=== PATIENT | male | born 1970 | race Hispanic/Latino ===

== ENCOUNTER → 2020-01-24 | Outpatient (CLI) | payer BC | END | disposition home or self-care (01) | LOC: RAH 09:37 | PROVIDERS: ATTEND Family Medicine | DX: R05 Cough (principal); M47.814 Spondylosis without myelopathy or radiculopathy, thoracic region; I70.0 Atherosclerosis of aorta | CPT/HCPCS: 71045 ==

== ENCOUNTER 2020-01-27 05:36 | Inpatient (IN) | payer BC ==
[~2020-01-27] VITALS: Ht 154.9 cm; Wt 79.7 kg
[2020-01-27 07:02] LABS: BASOPHILS % (AUTO) 0.1 % (0.0-5.0); EOSINOPHILS % (AUTO) 0.1 % (0.0-8.0); HEMATOCRIT 41.2 % (42-54); LYMPHOCYTES % (AUTO) 8.4 % (21.0-51.0); MEAN CORPUSCULAR HEMOGLOBIN 32.3 pg (27.0-33.0); MEAN CORPUSCULAR HGB CONC 33.7 g/dL (32.0-36.0); MEAN CORPUSCULAR VOLUME 95.8 fL (79-99); MONOCYTES % (AUTO) 9.6 % (3.0-13.0); NEUTROPHILS % (AUTO) 81.2 % (40.0-77.0); PLATELET COUNT (AUTO) 189 K/uL (130-400); RED CELL DISTRIBUTION WIDTH 13.2 % (11.0-15.5); WHITE BLOOD COUNT (AUTO) 14.4 K/uL (4.8-10.8)
[2020-01-27 07:17] LABS: INR 1.01 (0.85-1.15); PARTIAL THROMBOPLASTIN TIME 26.7 SEC (26.3-35.5); PROTHROMBIN TIME 10.9 SEC (9.6-11.6)
[2020-01-27 07:26] LABS: ALBUMIN 2.4 g/dL (3.5-5.0); BILIRUBIN,TOTAL 0.8 mg/dL (0.2-1.0); CREATININE 1.1 mg/dL (0.5-1.5); POTASSIUM 3.9 mmol/L (3.5-5.1); TOTAL PROTEIN, SERUM 7.3 g/dL (6.0-8.3)
[2020-01-27 07:27] LABS: ABG BASE EXCESS -1.2 mmol/L (-2.0-3.0); ABG HCO3 21.4 mmol/L (21.0-28.0); ABG OXYGEN SATURATION 90.9 % (95.0-99.0); ABG PCO2 31 mmHg (35-48)
[2020-01-27 07:33] LABS: B-TYPE NATRIURETIC PEPTIDE 985 pg/mL (0-100)
[2020-01-27] MEDS ORDERED: ASPIRIN 325 MG TABLET ONE (08:32)
[2020-01-27] MEDS ORDERED: CEFTRIAXONE SODIUM 2 GM VIAL ONE (08:50)
[2020-01-27] MEDS ORDERED: AZITHROMYCIN 500MG+NS 250ML 250 ML IV ONE (08:50)
[2020-01-27] MEDS ORDERED: METHYLPREDNISOLONE SOD SUCC 40MG/ML 1ML IVP SCH (09:00)
[2020-01-27] MEDS ORDERED: LACTULOSE 20 GM/30 ML UDCUP PO PRN (09:00)
[2020-01-27] MEDS ORDERED: ENOXAPARIN SODIUM 40 MG/0.4 ML SYRINGE SQ SCH (09:00)
[2020-01-27] MEDS ORDERED: NITROGLYCERIN 0.4 MG SL TAB SL PRN (09:00)
[2020-01-27] MEDS ORDERED: ERGOCALCIFEROL (VITAMIN D2) 50,000 UNIT CAPSULE PO SCH (09:00)
[2020-01-27] MEDS ORDERED: ONDANSETRON HCL 4 MG/2 ML VIAL IV PRN (09:00)
[2020-01-27] MEDS ORDERED: ACETAMINOPHEN 325 MG TAB PO PRN ×2 (09:00)
[2020-01-27 09:28] LABS: CHOLESTEROL 156 mg/dL (<200); HDL CHOLESTEROL 25 mg/dL (29-71); LDL DIRECT 120 mg/dL (0-99); TRIGLYCERIDES 78 mg/dL (30-200)
[2020-01-27 09:36] LABS: HEMOGLOBIN A1C 6.1 % (4.0-6.0)
[2020-01-27] MEDS ORDERED: IOHEXOL 350 MG/ML 100ML INFUS..BTL IV ONE (09:38)
[2020-01-27] MEDS ORDERED: FUROSEMIDE 10 MG/ML 2ML VIAL IV SCH ×2 (09:45→09:49)
[2020-01-27] MEDS ORDERED: METOPROLOL TARTRATE 1 MG/ML 5ML VIAL IV SCH (09:49)
[2020-01-27] MEDS ORDERED: TICAGRELOR 90 MG TABLET PO SCH (09:49)
[2020-01-27] MEDS ORDERED: MORPHINE SULFATE 5 MG/ML VIAL IV SCH (09:49)
[2020-01-27] MEDS ORDERED: FUROSEMIDE 10 MG/ML 2ML VIAL ONE ×2 (09:52→20:25)
[2020-01-27] MEDS ORDERED: MORPHINE SULFATE 4 MG/1ML SYG ONE (09:53)
[2020-01-27] MEDS ORDERED: METOPROLOL TARTRATE 1 MG/ML 5ML VIAL IV ONE (09:53)
[2020-01-27] MEDS ORDERED: ENOXAPARIN SODIUM 100 MG/1 ML SQ ONE ×2 (09:54→20:24)
[2020-01-27] MEDS ORDERED: ALBUTEROL INHALER 90MCG/INH IH PRN (10:00)
[2020-01-27 11:24] LABS: APPEARANCE,URINE Clear (CLEAR); BILIRUBIN,URINE Negative (NEGATIVE); COLOR,URINE Yellow (YELLOW); GLUCOSE, URINE (UA) Negative (NEGATIVE); KETONES,URINE Negative (NEGATIVE); LEUKOCYTE ESTERASE ,URINE Negative (NEGATIVE); NITRATE,URINE Negative (NEGATIVE); OCCULT BLOOD,URINE Negative (NEGATIVE); PROTEIN,URINE POS 1+ mg/dL (NEGATIVE)
[2020-01-27 11:58] LABS: BACTERIA,URINE Rare /HPF (None Seen); MUCUS,URINE Rare LPF (None Seen); RBC,URINE 0-1 /HPF (0-1); SQUAMOUS EPITHELIAL CELL,UR Rare /HPF (0-2); WBC,URINE 0-1 /HPF (0-1)
[2020-01-27] MEDS ORDERED: DEXAMETHASONE SOD PHOSPHATE 10MG/ML 1ML VIAL ONE (12:23)
[2020-01-27] MEDS ORDERED: METHYLPREDNISOLONE SOD SUCC 40MG/ML 1ML ONE (20:24)
[2020-01-27] MEDS ORDERED: DOXYCYCLINE HYCLATE 100 MG TABLET PO ONE (20:25)
[2020-01-27] MEDS ORDERED: ACETYLCYSTEINE 600 MG CAPSULE ONE (20:25)
[2020-01-27] MEDS ORDERED: ATORVASTATIN CALCIUM 40 MG TABLET ONE (20:26)
[2020-01-27] MEDS ORDERED: CEFTRIAXONE SODIUM 1 GM ONE (20:26)
[2020-01-27] MEDS ORDERED: METOPROLOL TARTRATE 25 MG TAB ONE (20:27)
[2020-01-27] MEDS: METOPROLOL TARTRATE 25 MG TAB PO SCH (21:00)
[2020-01-27] MEDS: ATORVASTATIN CALCIUM 40 MG TABLET PO SCH (21:00)
[2020-01-28 01:35] VITALS: BP 135/81
[2020-01-28 03:00] VITALS: BP 107/66
[2020-01-28] MEDS ORDERED: ALPRAZOLAM 0.25 MG TABLET PO ONE (04:45)
[2020-01-28] MEDS ORDERED: ALPRAZOLAM 0.25 MG TABLET ONE (04:45)
[2020-01-28] MEDS ORDERED: FUROSEMIDE 10 MG/ML 2ML VIAL IV ONE (05:00)
--- NOTE | 2020-01-28 05:00 | NUR ---
BIPAP PLACED BY RT. SETTINGS TITRATED BY RT ORDERED. PT LAVERN WELL
[2020-01-28] MEDS ORDERED: FUROSEMIDE 10 MG/ML 4ML VIAL ONE (05:01)
[2020-01-28] MEDS ORDERED: GUAIFENESIN-CODEINE 5 ML SYRUP ONE (05:22)
[2020-01-28 05:26] LABS: BASOPHILS % (AUTO) 0.1 % (0.0-5.0); HEMATOCRIT 46.2 % (42-54); LYMPHOCYTES % (AUTO) 9.7 % (21.0-51.0); MEAN CORPUSCULAR HGB CONC 33.1 g/dL (32.0-36.0); MEAN CORPUSCULAR VOLUME 96.7 fL (79-99); MONOCYTES % (AUTO) 4.3 % (3.0-13.0); NEUTROPHILS % (AUTO) 85.1 % (40.0-77.0); PLATELET COUNT (AUTO) 241 K/uL (130-400); RED BLOOD CELL COUNT(AUTO) 4.78 MIL/uL (4.50-6.20); RED CELL DISTRIBUTION WIDTH 13.4 % (11.0-15.5); WHITE BLOOD COUNT (AUTO) 12.5 K/uL (4.8-10.8)
[2020-01-28] MEDS ORDERED: NITROGLYCERIN 1GM/1 INCH PACKET TD ONE (05:30)
[2020-01-28] MEDS ORDERED: GUAIFENESIN-CODEINE 5 ML SYRUP PO PRN (05:30)
[2020-01-28 05:50] LABS: CRP QUANTITATIVE 72.8 mg/L (0.00-9.0); POTASSIUM 4.6 mmol/L (3.5-5.1)
--- NOTE | 2020-01-28 07:26 | NUR ---
preston KRAUSE. PT CURRENTLY ON NONREBREATHER @ 15 L. SpO2 @ 93%, RR 32 Addendum: 01/28/20 at 0728 by VENITA GROSS RN RN LATE ENTRY. EVENT OCCURRED AT 2323
[2020-01-28] MEDS ORDERED: PHARMACY COMMUNICATION MISC SCH (08:15)
[2020-01-28] MEDS: ZINC SULFATE 220 CAPSULE PO SCH (08:23)
[2020-01-28] MEDS: METOPROLOL TARTRATE 25 MG TAB PO SCH ×2 (08:28→21:00)
[2020-01-28] MEDS: CEFTRIAXONE SODIUM 1 GM IVP SCH ×2 (08:28→20:09)
[2020-01-28] MEDS: DOXYCYCLINE HYCLATE 100 MG TABLET PO SCH ×2 (08:28→20:11)
[2020-01-28] MEDS: ACETYLCYSTEINE 600 MG CAPSULE PO SCH ×2 (08:28→20:12)
[2020-01-28] MEDS: ASCORBIC ACID 500 MG TAB PO SCH (08:28)
[2020-01-28] MEDS: TICAGRELOR 90 MG TABLET PO SCH ×2 (08:28→20:12)
[2020-01-28] MEDS: ASPIRIN 81MG TAB.CHEW PO SCH (08:28)
[2020-01-28] MEDS: ENOXAPARIN SODIUM 100 MG/1 ML SQ SCH ×2 (08:33→20:11)
[2020-01-28] MEDS: METHYLPREDNISOLONE SOD SUCC 40MG/ML 1ML IVP SCH ×6 (08:35→20:13)
[2020-01-28] MEDS ORDERED: REMDESIVIR (EUA) 520 200 MG in SODIUM CHLORIDE 0.9% 250 ML IV SCH (08:45)
[2020-01-28] MEDS ORDERED: COMPOUND IV REFRIGERATED 1 EACH IVSOLN MISC PRN (08:45)
[2020-01-28] MEDS ORDERED: METHYLPREDNISOLONE SOD SUCC 40MG/ML 1ML IVP SCH (09:00)
[2020-01-28 12:00] VITALS: BP 108/66
[2020-01-28] MEDS: LORAZEPAM 2 MG/ML 1 ML VIAL IVP PRN ×2 (14:14→15:32)
--- NOTE | 2020-01-28 14:17 | NUR ---
CHART CHECK COMPLETED. Pt HAS A 49 Y.O. MALE ADMITTED SECONDARY TO COVID 19 INFECTION, ACUTE RESPIRATORY FAILURE, R LOVER EXTREMITY DVT, NSTEMI, ACUTE CHF. PAST MEDICAL HISTORY SIGNIFICANT FOR HYPERTENSION. Pt CURRENTLY ON REGULAR TEXTURE,THIN LIQUID DIET (HEART HEALTHY). PLEASE REQUEST FORMAL SKILLED SPEECH/SWALLOW EVALUATION IF Pt PRESENTS WITH +S/S OF ASPIRATION SUCH COUGH RESPONSE, THROAT CLEAR, OR WET VOCAL QUALITY DURING P.O. Addendum: 01/28/20 at 1424 by JOSEP LOZANO [facility] Amended: Links added.
[2020-01-28] MEDS: FUROSEMIDE 10 MG/ML 2ML VIAL IV SCH ×2 (15:30→20:10)
[2020-01-28 16:00] VITALS: BP 107/73
--- NOTE | 2020-01-28 18:03 | NUR ---
RAPID COVID-19 COLLECTED AND SENT TO LAB.
--- NOTE | 2020-01-28 18:11 | NUR ---
PATIENT IS LAYING ON BED IN A HIGH TRUJILLO'S POSITION, ASLEEP, AND ON A BIPAP 18/10, 100%. HE APPEARS COMFORTABLE ALTHOUGH STILL TACHYPNEIC WITH RR IN THE 20'S. PATIENT IS PENDING ICU TRANSFER. CALL LIGHT WITHIN REACH.
[2020-01-28 19:00] VITALS: BP 100/69
--- NOTE | 2020-01-28 19:49 | NUR ---
SPOKE TO SON ON PHONE ABOUT PATIENT - STATES EMPLOYED, ACTIVE, INDEPENDENT, NO DEM , DOES NOT FOLLOW VERY REGULARLY WITH , SEES DR. PAZ OCCAISIONALLY , ADDED SISTERT GEOVANNA TO FACE SHEET AND FAXED. [facility]. EDEN WAITING FOR ICU BED. VERY SICK CM TO FOLLOW Addendum: 01/28/20 at 1958 by ROXANNE MAYORGA RN CM Amended: Links added.
[2020-01-28] MEDS: ATORVASTATIN CALCIUM 40 MG TABLET PO SCH (20:12)
[2020-01-28 23:53] VITALS: BP 96/54
[2020-01-29] VITALS (8 sets, daily range): BP systolic 84–128; BP diastolic 54–77
[2020-01-29 05:33] LABS: BASOPHILS % (AUTO) 0.1 % (0.0-5.0); HEMATOCRIT 39.9 % (42-54); MEAN CORPUSCULAR HGB CONC 33.3 g/dL (32.0-36.0); MEAN CORPUSCULAR VOLUME 95.9 fL (79-99); MONOCYTES % (AUTO) 5.1 % (3.0-13.0); NEUTROPHILS % (AUTO) 89.2 % (40.0-77.0); PLATELET COUNT (AUTO) 210 K/uL (130-400); RED BLOOD CELL COUNT(AUTO) 4.16 MIL/uL (4.50-6.20); RED CELL DISTRIBUTION WIDTH 13.2 % (11.0-15.5); WHITE BLOOD COUNT (AUTO) 12.1 K/uL (4.8-10.8)
[2020-01-29] MEDS: METHYLPREDNISOLONE SOD SUCC 40MG/ML 1ML IVP SCH ×2 (05:44→08:34)
[2020-01-29] MEDS: FUROSEMIDE 10 MG/ML 2ML VIAL IV SCH ×3 (05:44→21:00)
[2020-01-29 05:51] LABS: ALBUMIN 2.2 g/dL (3.5-5.0); BILIRUBIN,TOTAL 0.5 mg/dL (0.2-1.0); CREATININE 0.9 mg/dL (0.5-1.5); CRP QUANTITATIVE 36.7 mg/L (0.00-9.0); POTASSIUM 3.9 mmol/L (3.5-5.1); TOTAL PROTEIN, SERUM 6.6 g/dL (6.0-8.3)
[2020-01-29] MEDS: CEFTRIAXONE SODIUM 1 GM IVP SCH ×2 (08:32→20:59)
[2020-01-29] MEDS: ASCORBIC ACID 500 MG TAB PO SCH (08:32)
[2020-01-29] MEDS: ENOXAPARIN SODIUM 100 MG/1 ML SQ SCH ×2 (08:33→20:59)
[2020-01-29] MEDS: TICAGRELOR 90 MG TABLET PO SCH ×2 (08:33→20:58)
[2020-01-29] MEDS: ACETYLCYSTEINE 600 MG CAPSULE PO SCH ×2 (08:33→20:58)
[2020-01-29] MEDS: ASPIRIN 81MG TAB.CHEW PO SCH (08:33)
[2020-01-29] MEDS: ZINC SULFATE 220 CAPSULE PO SCH (08:33)
[2020-01-29] MEDS: DOXYCYCLINE HYCLATE 100 MG TABLET PO SCH ×2 (08:34→20:59)
[2020-01-29] MEDS: METOPROLOL TARTRATE 25 MG TAB PO SCH ×2 (08:34→20:58)
--- NOTE | 2020-01-29 08:44 | NUR ---
Report endorsed to KAMRON Yun
[2020-01-29] MEDS: REMDESIVIR (EUA) 520 100 MG in SODIUM CHLORIDE 0.9% 250 ML IV SCH (10:19)
--- NOTE | 2020-01-29 18:53 | NUR ---
TRANSFER RECEIVED FROM ICU. PT IS AAOx4. LYING IN BED IN HIGH TRUJILLO'S POSITION. DENIED ANY PAIN. PT STATED, "I'M SCARED. I WENT FROM BEING OKAY TO BEING HERE." PT REASSURED. RESPIRATIONS EVEN AND UNLABORED AT THIS TIME ON 100% NRB. CHRISTY CATHETER IN PLACE, PATENT, SECURED TO LEG. EDEMA TO BLE, ANKLES, FEET. WILL CONTINUE TO MONITOR. SAFETY MEASURES IN PLACE.
[2020-01-29] MEDS: ATORVASTATIN CALCIUM 40 MG TABLET PO SCH (20:59)
[2020-01-30 03:00] VITALS: BP 100/60
[2020-01-30 04:46] LABS: ALBUMIN 2.3 g/dL (3.5-5.0); BILIRUBIN,TOTAL 0.6 mg/dL (0.2-1.0); CREATININE 0.3 mg/dL (0.5-1.5); CRP QUANTITATIVE 24.3 mg/L (0.00-9.0); POTASSIUM 3.6 mmol/L (3.5-5.1); TOTAL PROTEIN, SERUM 6.8 g/dL (6.0-8.3)
[2020-01-30 04:47] LABS: BASOPHILS % (AUTO) 0.1 % (0.0-5.0); HEMATOCRIT 40.3 % (42-54); LYMPHOCYTES % (AUTO) 5.8 % (21.0-51.0); MEAN CORPUSCULAR HEMOGLOBIN 31.8 pg (27.0-33.0); MEAN CORPUSCULAR VOLUME 96.4 fL (79-99); MONOCYTES % (AUTO) 6.4 % (3.0-13.0); NEUTROPHILS % (AUTO) 87.1 % (40.0-77.0); PLATELET COUNT (AUTO) 228 K/uL (130-400); RED BLOOD CELL COUNT(AUTO) 4.18 MIL/uL (4.50-6.20); RED CELL DISTRIBUTION WIDTH 13.6 % (11.0-15.5)
[2020-01-30] MEDS: FUROSEMIDE 10 MG/ML 2ML VIAL IV SCH ×2 (05:46→10:45)
[2020-01-30 08:00] VITALS: BP 95/64
[2020-01-30] MEDS: CEFTRIAXONE SODIUM 1 GM IVP SCH (09:36)
[2020-01-30] MEDS: ZINC SULFATE 220 CAPSULE PO SCH (09:36)
[2020-01-30] MEDS: DEXAMETHASONE SOD PHOSPHATE 4 MG/ML 1ML VIAL IVP SCH (09:36)
[2020-01-30] MEDS: ASCORBIC ACID 500 MG TAB PO SCH (09:36)
[2020-01-30] MEDS: METOPROLOL TARTRATE 25 MG TAB PO SCH ×2 (09:37→23:18)
[2020-01-30] MEDS: TICAGRELOR 90 MG TABLET PO SCH ×2 (09:37→23:17)
[2020-01-30] MEDS: ACETYLCYSTEINE 600 MG CAPSULE PO SCH ×2 (09:37→23:19)
[2020-01-30] MEDS: DOXYCYCLINE HYCLATE 100 MG TABLET PO SCH (09:37)
[2020-01-30] MEDS: ENOXAPARIN SODIUM 100 MG/1 ML SQ SCH ×2 (09:38→23:20)
[2020-01-30] MEDS: ASPIRIN 81MG TAB.CHEW PO SCH (09:38)
[2020-01-30] MEDS: REMDESIVIR (EUA) 520 100 MG in SODIUM CHLORIDE 0.9% 250 ML IV SCH (09:41)
[2020-01-30 11:30] VITALS: BP 104/62
[2020-01-30] MEDS: MAG HYDROX/AL HYDROX/SIMETH ES 30 ML SUSP UDCUP PO PRN (12:08)
[2020-01-30 15:30] VITALS: BP 133/60
[2020-01-30 19:21] VITALS: BP 98/62
[2020-01-30] MEDS: ATORVASTATIN CALCIUM 40 MG TABLET PO SCH (23:17)
[2020-01-30 23:39] VITALS: BP 117/62
[2020-01-31] MEDS: LORAZEPAM 2 MG/ML 1 ML VIAL IVP PRN ×2 (03:08→13:40)
[2020-01-31 03:16] VITALS: BP 97/62
[2020-01-31 04:28] LABS: BASOPHILS % (AUTO) 0.1 % (0.0-5.0); HEMATOCRIT 39.2 % (42-54); LYMPHOCYTES % (AUTO) 3.9 % (21.0-51.0); MEAN CORPUSCULAR HGB CONC 33.2 g/dL (32.0-36.0); MEAN CORPUSCULAR VOLUME 96.6 fL (79-99); MONOCYTES % (AUTO) 5.7 % (3.0-13.0); NEUTROPHILS % (AUTO) 89.8 % (40.0-77.0); PLATELET COUNT (AUTO) 187 K/uL (130-400); RED BLOOD CELL COUNT(AUTO) 4.06 MIL/uL (4.50-6.20); RED CELL DISTRIBUTION WIDTH 13.4 % (11.0-15.5); WHITE BLOOD COUNT (AUTO) 13.6 K/uL (4.8-10.8)
[2020-01-31 04:55] LABS: ALBUMIN 2.2 g/dL (3.5-5.0); BILIRUBIN,TOTAL 0.9 mg/dL (0.2-1.0); CREATININE 0.8 mg/dL (0.5-1.5); POTASSIUM 3.8 mmol/L (3.5-5.1); TOTAL PROTEIN, SERUM 6.4 g/dL (6.0-8.3)
[2020-01-31 08:00] VITALS: BP 105/62
[2020-01-31] MEDS: ASCORBIC ACID 500 MG TAB PO SCH (09:00)
[2020-01-31] MEDS: FUROSEMIDE 10 MG/ML 2ML VIAL IV SCH ×2 (09:53→21:15)
[2020-01-31] MEDS: DEXAMETHASONE SOD PHOSPHATE 4 MG/ML 1ML VIAL IVP SCH (09:53)
[2020-01-31] MEDS: REMDESIVIR (EUA) 520 100 MG in SODIUM CHLORIDE 0.9% 250 ML IV SCH (09:53)
[2020-01-31] MEDS: ACETYLCYSTEINE 600 MG CAPSULE PO SCH ×2 (09:54→21:14)
[2020-01-31] MEDS: ASPIRIN 81MG TAB.CHEW PO SCH (09:54)
[2020-01-31] MEDS: METOPROLOL TARTRATE 25 MG TAB PO SCH ×2 (09:54→21:14)
[2020-01-31] MEDS: ZINC SULFATE 220 CAPSULE PO SCH (09:54)
[2020-01-31] MEDS: TICAGRELOR 90 MG TABLET PO SCH ×2 (09:54→21:15)
[2020-01-31] MEDS: ENOXAPARIN SODIUM 100 MG/1 ML SQ SCH ×2 (09:54→21:14)
[2020-01-31 11:30] VITALS: BP 101/66
--- NOTE | 2020-01-31 13:40 | NUR ---
PATIENT CALLED OUT STATING HE WAS REALLY ANXIOUS AND SCARED THAT HE DID NOT WANT TO GET ANY WORSE. EXPLAINED TO PATIENT THAT HE HAS BEEN SATTING AT 100% ON THE NON REBREATHER. PATIENT STATED HE UNDERSTOOD JUST WAS REALLY NERVOUS. THIS NURSE DID DO HIS VITAL SIGNS AND HE WAS SATTING AT 100% ON THE NON REBREATHER. THIS NURSE DID EDUCATE ON TAKING DEEP BREATHS IN WITH HIS NOSE AND OUT THROUGH HIS MOUTH. PATIENT STATED HE UNDERSTOOD. PATIENT DOES HAVE ATIVAN 1MG ORDERED FOR ANXIETY. 1340 PATIENT GIVEN 1MG FOR ANXIETY.
--- NOTE | 2020-01-31 14:45 | NUR ---
1420 PATIENT HAD TAKEN OFF HIS NONREBREATHER MASK AND WAS DIAPHORETIC AND LETHARGIC. RAPID RESPONSE WAS CALLED. PATIENT PUT ON BIPAP. PATIENT VITALS ARE STABLE AND SATTING AT 99% PATIENT IS AROUSABLE AND ABLE TO SPEAK. PATIENT STATES HE FEELS BETTER.
--- NOTE | 2020-01-31 14:48 | NUR ---
EDUCATED TO PATIENT NOT TO TAKE HIS MASK OR BIPAP OFF AND TO HIT THE CALL LIGHT IF HE NEEDS ANYTHING. PATIENT VERBALIZED UNDERSTANDING. WILL CONTINUE TO CLOSELY MONITOR.
[2020-01-31 15:30] VITALS: BP 106/58
--- NOTE | 2020-01-31 15:52 | NUR ---
PATIENT IS CONTINUOUSLY TAKING BIPAP OFF. ORDERS RECEIVED FROM DR. GOODWIN FOR A ONE TO ONE SITTER AT THIS TIME.
--- NOTE | 2020-01-31 18:39 | NUR ---
DR. Malou CHIN IN ROOM ASSESSING/SPEAKING WITH PT. RE:PLAN OF CARE.
--- NOTE | 2020-01-31 18:46 | NUR ---
DR. Malou CHIN SPEAKING WITH PT.'S DAUGHTER, GEOVANNA YANEZ, VIA TELEPHONE; UPDATING ON PT.'S STATUS AND PLAN OF CARE. QUESTIONS ANSWERED BY DR. Malou CHIN.
[2020-01-31 19:38] VITALS: BP 101/79
[2020-01-31] MEDS: ATORVASTATIN CALCIUM 40 MG TABLET PO SCH (21:16)
[2020-01-31 23:39] VITALS: BP 114/84
[2020-02-01 04:00] VITALS: BP 101/79
--- NOTE | 2020-02-01 04:19 | NUR ---
END OF SHIFT NOTE. PATIENT HAS BEEN SATTING AT 98% WITH BIPAP ON. PLAN TO PLACE ON NON REBREATHER IN THE MORNING. ONE TO ONE SITTER HAS BEEN CLOSELY MONITORING. NO SIGNS OR SYMPTOMS OF RESPIRATORY DISTRESS. PATIENT DID NOT TRY TO PULL OFF BIPAP DURING THE NIGHT. PATIENT DENIES ANY PAIN AT THIS TIME.
--- NOTE | 2020-02-01 05:36 | NUR ---
BACK TO NON REBREATHER BATHED PATIENT AND PLACED PATIENT FROM BIPAP BACK TO NON REBREATHER. PATIENT IS SATTING BETWEEN 92%-96%. PATIENT STATES HE FEELS MUCH BETTER. EDUCATED TO PATIENT NOT TO TAKE OFF MASK. PATIENT VERBALIZED UNDERSTANDING. PATIENT DOES HAVE A ONE TO ONE SITTER.
[2020-02-01 08:00] VITALS: BP 100/67
[2020-02-01] MEDS: ZINC SULFATE 220 CAPSULE PO SCH (10:02)
[2020-02-01] MEDS: METOPROLOL TARTRATE 25 MG TAB PO SCH ×2 (10:02→22:10)
[2020-02-01] MEDS: ASCORBIC ACID 500 MG TAB PO SCH (10:02)
[2020-02-01] MEDS: TICAGRELOR 90 MG TABLET PO SCH ×2 (10:03→22:10)
[2020-02-01] MEDS: ACETYLCYSTEINE 600 MG CAPSULE PO SCH ×2 (10:03→22:11)
[2020-02-01] MEDS: SPIRONOLACTONE 25 MG TAB PO SCH (10:03)
[2020-02-01] MEDS: ASPIRIN 81MG TAB.CHEW PO SCH (10:03)
[2020-02-01] MEDS: DEXAMETHASONE SOD PHOSPHATE 4 MG/ML 1ML VIAL IVP SCH (10:04)
[2020-02-01] MEDS: FUROSEMIDE 10 MG/ML 2ML VIAL IV SCH ×2 (10:04→22:11)
[2020-02-01] MEDS: ENOXAPARIN SODIUM 100 MG/1 ML SQ SCH ×2 (10:05→22:10)
[2020-02-01] MEDS: REMDESIVIR (EUA) 520 100 MG in SODIUM CHLORIDE 0.9% 250 ML IV SCH (10:05)
--- NOTE | 2020-02-01 10:10 | NUR ---
Nicolle EM, VEHICLE OPERATOR TECHNICIAN, IN ROOM SPEAKING WITH PT. RE:PLAN OF CARE. Nicolle EM UPDATED BY THIS NURSE ON PT.'S CURRENT MEDICATION REGIMEN AND OXYGEN REQUIREMENTS; VERBALIZED UNDERSTANDING.
[2020-02-01] MEDS ORDERED: SODIUM CHLORIDE 0.9% 50 ML IV ONE (11:10)
[2020-02-01 11:30] VITALS: BP 113/62
[2020-02-01] MEDS ORDERED: DOXYCYCLINE 100MG+NS 250ML 250 ML IV SCH (12:30)
[2020-02-01] MEDS: CEFEPIME HCL 2 GM VIAL IVP SCH ×2 (13:26→22:09)
[2020-02-01 15:30] VITALS: BP 113/62
[2020-02-01] MEDS ORDERED: IOHEXOL-350 75 ML VIAL IV ONE (15:40)
[2020-02-01 19:46] VITALS: BP 105/66
[2020-02-01] MEDS: ATORVASTATIN CALCIUM 40 MG TABLET PO SCH (22:10)
[2020-02-01 23:42] VITALS: BP 113/70
[2020-02-02 03:20] VITALS: BP 105/60
[2020-02-02 05:16] LABS: BASOPHILS % (AUTO) 0.1 % (0.0-5.0); EOSINOPHILS % (AUTO) 0.1 % (0.0-8.0); HEMATOCRIT 44.6 % (42-54); LYMPHOCYTES % (AUTO) 3.3 % (21.0-51.0); MEAN CORPUSCULAR HEMOGLOBIN 31.8 pg (27.0-33.0); MEAN CORPUSCULAR HGB CONC 33.2 g/dL (32.0-36.0); MEAN CORPUSCULAR VOLUME 95.7 fL (79-99); MONOCYTES % (AUTO) 4.2 % (3.0-13.0); NEUTROPHILS % (AUTO) 91.8 % (40.0-77.0); PLATELET COUNT (AUTO) 198 K/uL (130-400); RED BLOOD CELL COUNT(AUTO) 4.66 MIL/uL (4.50-6.20); RED CELL DISTRIBUTION WIDTH 13.6 % (11.0-15.5); WHITE BLOOD COUNT (AUTO) 19.2 K/uL (4.8-10.8)
[2020-02-02 05:37] LABS: ALBUMIN 2.3 g/dL (3.5-5.0); BILIRUBIN,TOTAL 1.3 mg/dL (0.2-1.0); CREATININE 0.8 mg/dL (0.5-1.5); POTASSIUM 3.5 mmol/L (3.5-5.1)
[2020-02-02] MEDS: CEFEPIME HCL 2 GM VIAL IVP SCH ×3 (05:42→22:58)
[2020-02-02 08:00] VITALS: BP 106/66
[2020-02-02] MEDS: TICAGRELOR 90 MG TABLET PO SCH ×2 (08:24→22:59)
[2020-02-02] MEDS: SPIRONOLACTONE 25 MG TAB PO SCH (08:25)
[2020-02-02] MEDS: ASCORBIC ACID 500 MG TAB PO SCH (08:25)
[2020-02-02] MEDS: METOPROLOL TARTRATE 25 MG TAB PO SCH ×2 (08:25→21:00)
[2020-02-02] MEDS: ZINC SULFATE 220 CAPSULE PO SCH (08:25)
[2020-02-02] MEDS: ACETYLCYSTEINE 600 MG CAPSULE PO SCH ×2 (08:26→23:00)
[2020-02-02] MEDS: ASPIRIN 81MG TAB.CHEW PO SCH (08:26)
[2020-02-02] MEDS: FUROSEMIDE 10 MG/ML 2ML VIAL IV SCH ×2 (08:28→22:58)
[2020-02-02] MEDS: DEXAMETHASONE SOD PHOSPHATE 4 MG/ML 1ML VIAL IVP SCH (08:28)
[2020-02-02] MEDS: ENOXAPARIN SODIUM 100 MG/1 ML SQ SCH ×2 (08:29→23:01)
[2020-02-02] MEDS: DOXYCYCLINE 100MG+NS 250ML 250 ML IV SCH ×3 (09:00→22:59)
[2020-02-02 11:30] VITALS: BP 94/67
[2020-02-02 15:30] VITALS: BP 104/76
[2020-02-02] MEDS ORDERED: LIDOCAINE HCL-MPF 1% 2ML VIAL IV PRN (16:30)
[2020-02-02] MEDS ORDERED: POTASSIUM CHLORIDE 10% ELIXIR 20 MEQ/15 ML UDCUP PO PRN (16:30)
[2020-02-02] MEDS ORDERED: POTASSIUM CHLORIDE 20MEQ/100ML 100 ML IV PRN (16:30)
[2020-02-02 19:35] VITALS: BP 102/61
[2020-02-02] MEDS: LISINOPRIL 5 MG TABLET PO SCH (21:00)
[2020-02-02] MEDS: POTASSIUM CHLORIDE 20 MEQ ERTAB PO PRN (22:00)
[2020-02-02] MEDS: ATORVASTATIN CALCIUM 40 MG TABLET PO SCH (22:59)
[2020-02-02] MEDS ORDERED: MAG HYDROX/AL HYDROX/SIMETH ES 30 ML SUSP UDCUP PO PRN (23:00)
[2020-02-02] MEDS ORDERED: LIDOCAINE HCL 2% VISCOUS 30 ML, MAG HYDROX/AL HYDROX/SIMETH 30 ML, BELLADONNA-PHENOBARB... PO PRN ×3 (23:00)
[2020-02-02] MEDS: MAG HYDROX/AL HYDROX/SIMETH ES 30 ML SUSP UDCUP PO PRN (23:07)
[2020-02-02 23:09] VITALS: BP 103/66
[2020-02-03 03:43] VITALS: BP 103/72
[2020-02-03] MEDS: POTASSIUM CHLORIDE 20 MEQ ERTAB PO PRN (03:48)
[2020-02-03] MEDS: MAG HYDROX/AL HYDROX/SIMETH ES 30 ML SUSP UDCUP PO PRN ×2 (04:37→10:26)
[2020-02-03] MEDS: CEFEPIME HCL 2 GM VIAL IVP SCH ×3 (06:27→22:42)
[2020-02-03 08:00] VITALS: BP 106/72
--- NOTE | 2020-02-03 09:20 | NUR ---
DR. Malou CHIN IN ROOM ASSESSING/SPEAKING WITH PT. RE:PLAN OF CARE. QUESTIONS ANSWERED BY DR. CHIN.
[2020-02-03] MEDS: FUROSEMIDE 10 MG/ML 2ML VIAL IV SCH (09:50)
[2020-02-03] MEDS: FUROSEMIDE 20 MG TABLET PO SCH ×2 (10:00→22:43)
[2020-02-03] MEDS: ASCORBIC ACID 500 MG TAB PO SCH (10:05)
[2020-02-03] MEDS: TICAGRELOR 90 MG TABLET PO SCH ×2 (10:05→22:41)
[2020-02-03] MEDS: ACETYLCYSTEINE 600 MG CAPSULE PO SCH ×2 (10:05→22:40)
[2020-02-03] MEDS: DEXAMETHASONE SOD PHOSPHATE 4 MG/ML 1ML VIAL IVP SCH (10:05)
[2020-02-03] MEDS: DOXYCYCLINE 100MG+NS 250ML 250 ML IV SCH ×2 (10:05→22:43)
[2020-02-03] MEDS: METOPROLOL TARTRATE 25 MG TAB PO SCH ×2 (10:06→22:43)
[2020-02-03] MEDS: ZINC SULFATE 220 CAPSULE PO SCH (10:06)
[2020-02-03] MEDS: SPIRONOLACTONE 25 MG TAB PO SCH (10:06)
[2020-02-03] MEDS: ASPIRIN 81MG TAB.CHEW PO SCH (10:06)
[2020-02-03] MEDS: ENOXAPARIN SODIUM 100 MG/1 ML SQ SCH ×2 (10:07→22:43)
[2020-02-03 10:44] LABS: BASOPHILS % (AUTO) 0.1 % (0.0-5.0); EOSINOPHILS % (AUTO) 0.1 % (0.0-8.0); LYMPHOCYTES % (AUTO) 4.3 % (21.0-51.0); MEAN CORPUSCULAR HEMOGLOBIN 32.2 pg (27.0-33.0); MEAN CORPUSCULAR HGB CONC 33.5 g/dL (32.0-36.0); MONOCYTES % (AUTO) 4.7 % (3.0-13.0); NEUTROPHILS % (AUTO) 90.3 % (40.0-77.0); PLATELET COUNT (AUTO) 218 K/uL (130-400); RED CELL DISTRIBUTION WIDTH 13.8 % (11.0-15.5); WHITE BLOOD COUNT (AUTO) 19.1 K/uL (4.8-10.8)
[2020-02-03 10:53] LABS: CREATININE 0.8 mg/dL (0.5-1.5); POTASSIUM 4.6 mmol/L (3.5-5.1)
[2020-02-03 10:55] LABS: ALBUMIN 2.5 g/dL (3.5-5.0)
[2020-02-03 11:20] LABS: BILIRUBIN,TOTAL 1.2 mg/dL (0.2-1.0); TOTAL PROTEIN, SERUM 7.5 g/dL (6.0-8.3)
[2020-02-03 11:30] VITALS: BP 99/67
[2020-02-03] MEDS: PANTOPRAZOLE SODIUM 40 MG TABLET.DR PO SCH (12:30)
[2020-02-03] MEDS: POTASSIUM CHLORIDE 10 MEQ/TAB.SA PO SCH ×2 (12:31→22:41)
[2020-02-03 15:30] VITALS: BP 98/71
[2020-02-03] MEDS: WARFARIN SODIUM 2 MG TAB PO SCH (16:58)
[2020-02-03 19:00] VITALS: BP 96/62
[2020-02-03] MEDS ORDERED: POTASSIUM CHLORIDE 10 MEQ/TAB.SA PO SCH (21:00)
[2020-02-03] MEDS: ATORVASTATIN CALCIUM 40 MG TABLET PO SCH (22:42)
[2020-02-03] MEDS: LISINOPRIL 5 MG TABLET PO SCH (22:42)
[2020-02-03 23:00] VITALS: BP 99/62
[2020-02-04] MEDS: CEFEPIME HCL 2 GM VIAL IVP SCH ×3 (03:52→21:30)
[2020-02-04 04:00] VITALS: BP 100/68
[2020-02-04 05:42] LABS: INR 1.09 (0.85-1.15); PROTHROMBIN TIME 11.7 SEC (9.6-11.6)
[2020-02-04 07:00] VITALS: BP 98/69
--- NOTE | 2020-02-04 08:30 | NUR ---
AM ASSESSMENT PT AWAKE, ALERT, AND ORIENTED. DENIES CHEST PAIN OR DISCOMFORT, DENIES SOB OR LABORED RESPIRATIONS AT REST. O2 PER VENTI MASK, ASSISTANCE WITH ADLS, CALL LIGHT WITHIN REACH.
[2020-02-04] MEDS ORDERED: PANTOPRAZOLE SODIUM 40 MG TABLET.DR PO SCH (09:00)
[2020-02-04] MEDS: DEXAMETHASONE SOD PHOSPHATE 4 MG/ML 1ML VIAL IVP SCH (10:41)
[2020-02-04] MEDS: DOXYCYCLINE 100MG+NS 250ML 250 ML IV SCH ×2 (10:41→22:17)
[2020-02-04] MEDS: FUROSEMIDE 20 MG TABLET PO SCH ×2 (10:42→22:18)
[2020-02-04] MEDS: ASCORBIC ACID 500 MG TAB PO SCH (10:42)
[2020-02-04] MEDS: ENOXAPARIN SODIUM 100 MG/1 ML SQ SCH ×2 (10:42→22:19)
[2020-02-04] MEDS: ZINC SULFATE 220 CAPSULE PO SCH (10:43)
[2020-02-04] MEDS: TICAGRELOR 90 MG TABLET PO SCH ×2 (10:43→22:19)
[2020-02-04] MEDS: POTASSIUM CHLORIDE 10 MEQ/TAB.SA PO SCH ×2 (10:43→22:18)
[2020-02-04] MEDS: ASPIRIN 81MG TAB.CHEW PO SCH (10:43)
[2020-02-04] MEDS: SPIRONOLACTONE 25 MG TAB PO SCH (10:43)
[2020-02-04] MEDS: ACETYLCYSTEINE 600 MG CAPSULE PO SCH ×2 (10:44→22:17)
[2020-02-04] MEDS: METOPROLOL TARTRATE 25 MG TAB PO SCH ×2 (10:44→21:00)
[2020-02-04] MEDS: PANTOPRAZOLE SODIUM 40 MG TABLET.DR PO SCH (10:44)
[2020-02-04 11:00] VITALS: BP 99/70
[2020-02-04 16:00] VITALS: BP 95/64
[2020-02-04] MEDS: WARFARIN SODIUM 2 MG TAB PO SCH (17:23)
[2020-02-04 20:35] VITALS: BP 101/73
[2020-02-04] MEDS: ATORVASTATIN CALCIUM 40 MG TABLET PO SCH (22:17)
[2020-02-04] MEDS: LISINOPRIL 5 MG TABLET PO SCH (22:19)
[2020-02-05 00:05] VITALS: BP 95/61
[2020-02-05 05:06] VITALS: BP 100/69
[2020-02-05] MEDS: CEFEPIME HCL 2 GM VIAL IVP SCH ×3 (05:06→21:13)
[2020-02-05 06:44] LABS: BASOPHILS % (AUTO) 0.1 % (0.0-5.0); HEMATOCRIT 44.4 % (42-54); LYMPHOCYTES % (AUTO) 6.2 % (21.0-51.0); MEAN CORPUSCULAR HEMOGLOBIN 32.1 pg (27.0-33.0); MEAN CORPUSCULAR HGB CONC 34.2 g/dL (32.0-36.0); MEAN CORPUSCULAR VOLUME 93.9 fL (79-99); MONOCYTES % (AUTO) 5.8 % (3.0-13.0); NEUTROPHILS % (AUTO) 87.1 % (40.0-77.0); PLATELET COUNT (AUTO) 183 K/uL (130-400); RED BLOOD CELL COUNT(AUTO) 4.73 MIL/uL (4.50-6.20); RED CELL DISTRIBUTION WIDTH 13.1 % (11.0-15.5); WHITE BLOOD COUNT (AUTO) 14.4 K/uL (4.8-10.8)
[2020-02-05 07:07] LABS: CREATININE 0.8 mg/dL (0.5-1.5); CRP QUANTITATIVE 27.8 mg/L (0.00-9.0); POTASSIUM 5.1 mmol/L (3.5-5.1)
[2020-02-05 07:10] LABS: B-TYPE NATRIURETIC PEPTIDE 438 pg/mL (0-100)
[2020-02-05 07:26] LABS: INR 1.47 (0.85-1.15); PROTHROMBIN TIME 15.6 SEC (9.6-11.6)
[2020-02-05 08:48] VITALS: BP 96/58
[2020-02-05] MEDS: POTASSIUM CHLORIDE 10 MEQ/TAB.SA PO SCH ×2 (08:54→21:13)
[2020-02-05] MEDS: METOPROLOL TARTRATE 25 MG TAB PO SCH ×2 (08:55→21:00)
[2020-02-05] MEDS: ZINC SULFATE 220 CAPSULE PO SCH (09:03)
[2020-02-05] MEDS: ACETYLCYSTEINE 600 MG CAPSULE PO SCH ×2 (09:03→21:13)
[2020-02-05] MEDS: PANTOPRAZOLE SODIUM 40 MG TABLET.DR PO SCH (09:03)
[2020-02-05] MEDS: ASPIRIN 81MG TAB.CHEW PO SCH (09:04)
[2020-02-05] MEDS: TICAGRELOR 90 MG TABLET PO SCH ×2 (09:04→21:13)
[2020-02-05] MEDS: FUROSEMIDE 20 MG TABLET PO SCH ×2 (09:04→21:14)
[2020-02-05] MEDS: SPIRONOLACTONE 25 MG TAB PO SCH (09:04)
[2020-02-05] MEDS: ASCORBIC ACID 500 MG TAB PO SCH (09:05)
[2020-02-05] MEDS: DEXAMETHASONE SOD PHOSPHATE 4 MG/ML 1ML VIAL IVP SCH (09:05)
[2020-02-05] MEDS: DOXYCYCLINE 100MG+NS 250ML 250 ML IV SCH (09:07)
[2020-02-05] MEDS: ENOXAPARIN SODIUM 100 MG/1 ML SQ SCH ×2 (09:08→21:13)
[2020-02-05 11:31] VITALS: BP 83/61
[2020-02-05] MEDS: WARFARIN SODIUM 2 MG TAB PO SCH (15:25)
[2020-02-05 15:36] VITALS: BP 94/69
[2020-02-05] MEDS: LISINOPRIL 5 MG TABLET PO SCH (21:00)
[2020-02-05] MEDS: DOXYCYCLINE HYCLATE 100 MG TABLET PO SCH (21:13)
[2020-02-05] MEDS: ATORVASTATIN CALCIUM 40 MG TABLET PO SCH (21:13)
[2020-02-05 21:19] VITALS: BP 96/68
[2020-02-06 00:44] VITALS: BP 99/64
[2020-02-06] MEDS: CEFEPIME HCL 2 GM VIAL IVP SCH ×3 (04:43→21:57)
[2020-02-06 04:50] VITALS: BP 96/68
[2020-02-06 05:51] LABS: BASOPHILS % (AUTO) 0.2 % (0.0-5.0); LYMPHOCYTES % (AUTO) 6.5 % (21.0-51.0); MEAN CORPUSCULAR HEMOGLOBIN 32.5 pg (27.0-33.0); MEAN CORPUSCULAR VOLUME 92.8 fL (79-99); MONOCYTES % (AUTO) 6.6 % (3.0-13.0); NEUTROPHILS % (AUTO) 85.4 % (40.0-77.0); PLATELET COUNT (AUTO) 173 K/uL (130-400); RED BLOOD CELL COUNT(AUTO) 4.74 MIL/uL (4.50-6.20); WHITE BLOOD COUNT (AUTO) 17.4 K/uL (4.8-10.8)
[2020-02-06 07:06] LABS: ALBUMIN 2.6 g/dL (3.5-5.0); GLUCOSE,RANDOM 98 mg/dL (70-105); POTASSIUM 4.5 mmol/L (3.5-5.1); SODIUM SERUM 130 mmol/L (136-145); UREA NITROGEN, BLOOD 31 mg/dL (7-18)
[2020-02-06 07:07] LABS: ALANINE AMINOTRANSFERASE 76 U/L (12-78); ASPARTATE AMINOTRANSFERASE 31 U/L (10-37); CARBON DIOXIDE 22 mmol/L (21-32); CHLORIDE 99 mmol/L (101-111); CREATININE 0.8 mg/dL (0.5-1.5); GLOMERULAR FILTR. RATE CALC 108 mL/min (>60); LACTATE DEHYDROGENASE 351 U/L (81-234)
[2020-02-06 08:00] VITALS: BP 105/61
[2020-02-06 08:50] LABS: INR 1.86 (0.85-1.15); PROTHROMBIN TIME 19.6 SEC (9.6-11.6)
[2020-02-06] MEDS: POTASSIUM CHLORIDE 10 MEQ/TAB.SA PO SCH ×2 (09:16→21:57)
[2020-02-06] MEDS: METOPROLOL TARTRATE 25 MG TAB PO SCH ×2 (09:16→21:00)
[2020-02-06] MEDS: ACETYLCYSTEINE 600 MG CAPSULE PO SCH ×2 (09:16→21:56)
[2020-02-06] MEDS: DOXYCYCLINE HYCLATE 100 MG TABLET PO SCH ×2 (09:17→21:57)
[2020-02-06] MEDS: ASPIRIN 81MG TAB.CHEW PO SCH (09:17)
[2020-02-06] MEDS: ZINC SULFATE 220 CAPSULE PO SCH (09:17)
[2020-02-06] MEDS: TICAGRELOR 90 MG TABLET PO SCH ×2 (09:18→21:57)
[2020-02-06] MEDS: ASCORBIC ACID 500 MG TAB PO SCH (09:18)
[2020-02-06] MEDS: SPIRONOLACTONE 25 MG TAB PO SCH (09:18)
[2020-02-06] MEDS: PANTOPRAZOLE SODIUM 40 MG TABLET.DR PO SCH (09:18)
[2020-02-06] MEDS: FUROSEMIDE 20 MG TABLET PO SCH ×2 (09:19→21:57)
[2020-02-06] MEDS: DEXAMETHASONE SOD PHOSPHATE 4 MG/ML 1ML VIAL IVP SCH (09:19)
[2020-02-06] MEDS: ENOXAPARIN SODIUM 100 MG/1 ML SQ SCH ×2 (09:21→22:00)
[2020-02-06 12:00] VITALS: BP 95/64
[2020-02-06] MEDS: WARFARIN SODIUM 2 MG TAB PO SCH (15:41)
[2020-02-06 16:00] VITALS: BP 98/64
[2020-02-06 20:00] VITALS: BP 102/68
[2020-02-06] MEDS: LISINOPRIL 5 MG TABLET PO SCH (21:00)
[2020-02-06] MEDS: ATORVASTATIN CALCIUM 40 MG TABLET PO SCH (21:57)
[2020-02-07] VITALS (7 sets, daily range): BP systolic 90–132; BP diastolic 38–85
[2020-02-07] MEDS: CEFEPIME HCL 2 GM VIAL IVP SCH ×3 (04:27→19:51)
[2020-02-07 05:43] LABS: BASOPHILS % (AUTO) 0.2 % (0.0-5.0); EOSINOPHILS % (AUTO) 0.1 % (0.0-8.0); LYMPHOCYTES % (AUTO) 6.3 % (21.0-51.0); MEAN CORPUSCULAR HEMOGLOBIN 31.9 pg (27.0-33.0); MEAN CORPUSCULAR HGB CONC 34.8 g/dL (32.0-36.0); MEAN CORPUSCULAR VOLUME 91.8 fL (79-99); MONOCYTES % (AUTO) 5.3 % (3.0-13.0); NEUTROPHILS % (AUTO) 86.5 % (40.0-77.0); PLATELET COUNT (AUTO) 174 K/uL (130-400); RED BLOOD CELL COUNT(AUTO) 5.01 MIL/uL (4.50-6.20); RED CELL DISTRIBUTION WIDTH 13.1 % (11.0-15.5); WHITE BLOOD COUNT (AUTO) 19.3 K/uL (4.8-10.8)
[2020-02-07 06:08] LABS: ALBUMIN 2.6 g/dL (3.5-5.0); BILIRUBIN,TOTAL 0.8 mg/dL (0.2-1.0); CREATININE 0.8 mg/dL (0.5-1.5); CRP QUANTITATIVE 14.6 mg/L (0.00-9.0); POTASSIUM 4.3 mmol/L (3.5-5.1); TOTAL PROTEIN, SERUM 7.2 g/dL (6.0-8.3)
[2020-02-07 06:19] LABS: INR 1.95 (0.85-1.15); PARTIAL THROMBOPLASTIN TIME 41.1 SEC (26.3-35.5); PROTHROMBIN TIME 20.5 SEC (9.6-11.6)
[2020-02-07] MEDS: DEXAMETHASONE SOD PHOSPHATE 4 MG/ML 1ML VIAL IVP SCH (08:01)
[2020-02-07] MEDS: FUROSEMIDE 20 MG TABLET PO SCH ×2 (08:02→19:53)
[2020-02-07] MEDS: METOPROLOL TARTRATE 25 MG TAB PO SCH ×2 (08:02→21:18)
[2020-02-07] MEDS: PANTOPRAZOLE SODIUM 40 MG TABLET.DR PO SCH (08:02)
[2020-02-07] MEDS: DOXYCYCLINE HYCLATE 100 MG TABLET PO SCH ×2 (08:02→19:52)
[2020-02-07] MEDS: ZINC SULFATE 220 CAPSULE PO SCH (08:02)
[2020-02-07] MEDS: ASCORBIC ACID 500 MG TAB PO SCH (08:02)
[2020-02-07] MEDS: TICAGRELOR 90 MG TABLET PO SCH ×2 (08:03→19:52)
[2020-02-07] MEDS: SPIRONOLACTONE 25 MG TAB PO SCH (08:03)
[2020-02-07] MEDS: ASPIRIN 81MG TAB.CHEW PO SCH (08:03)
[2020-02-07] MEDS: ACETYLCYSTEINE 600 MG CAPSULE PO SCH ×2 (08:03→19:52)
[2020-02-07] MEDS: POTASSIUM CHLORIDE 10 MEQ/TAB.SA PO SCH ×2 (08:03→19:51)
[2020-02-07] MEDS: ENOXAPARIN SODIUM 100 MG/1 ML SQ SCH (08:04)
--- NOTE | 2020-02-07 10:10 | NUR ---
DR. Malou CHIN SPEAKING WITH PT. RE:STATUS AND PLAN OF CARE; QUESTIONS ANSWERED BY DR. Malou CHIN AND PT. VERBALIZED UNDERSTANDING.
--- NOTE | 2020-02-07 11:20 | NUR ---
DC PLAN CALLED PATIENT ROOM NO ANSWER. CALLED DAUGHTER NO ANSWER. CALLED SON SHANITA DID A CONFERENCE CALL WITH HIS SISTER. DISCUSSED [facility]. NOT CERTAIN DID NOT WANT TO GIVE LUIS ENRIQUE. GOT OKAY TO CALL BACK TOMORROW AT 900 TO SEE IF THEY CHANGED THEIR MIND. DAUGHTER CORRECT NUMBER IS [phone] SENT TO REGISTRATION. Addendum: 02/07/20 at 1121 by OSCAR CRUZ RN CM Amended: Links added.
[2020-02-07] MEDS: WARFARIN SODIUM 2 MG TAB PO SCH (16:13)
[2020-02-07] MEDS: ATORVASTATIN CALCIUM 40 MG TABLET PO SCH (19:54)
[2020-02-07] MEDS: LISINOPRIL 5 MG TABLET PO SCH (21:00)
[2020-02-08 03:26] VITALS: BP 97/72
[2020-02-08] MEDS: CEFEPIME HCL 2 GM VIAL IVP SCH (04:17)
[2020-02-08 05:00] LABS: BASOPHILS % (AUTO) 0.2 % (0.0-5.0); HEMATOCRIT 43.3 % (42-54); LYMPHOCYTES % (AUTO) 7.6 % (21.0-51.0); MEAN CORPUSCULAR HEMOGLOBIN 32.4 pg (27.0-33.0); MEAN CORPUSCULAR HGB CONC 35.3 g/dL (32.0-36.0); MEAN CORPUSCULAR VOLUME 91.7 fL (79-99); MONOCYTES % (AUTO) 6.1 % (3.0-13.0); PLATELET COUNT (AUTO) 152 K/uL (130-400); RED BLOOD CELL COUNT(AUTO) 4.72 MIL/uL (4.50-6.20); RED CELL DISTRIBUTION WIDTH 13.2 % (11.0-15.5); WHITE BLOOD COUNT (AUTO) 21.1 K/uL (4.8-10.8)
[2020-02-08 05:10] LABS: INR 1.92 (0.85-1.15); PROTHROMBIN TIME 20.2 SEC (9.6-11.6)
[2020-02-08 05:30] LABS: B-TYPE NATRIURETIC PEPTIDE 258 pg/mL (0-100)
[2020-02-08 05:51] LABS: ALBUMIN 2.4 g/dL (3.5-5.0); BILIRUBIN,TOTAL 0.8 mg/dL (0.2-1.0); CREATININE 0.8 mg/dL (0.5-1.5); CRP QUANTITATIVE 16.9 mg/L (0.00-9.0); POTASSIUM 4.2 mmol/L (3.5-5.1); TOTAL PROTEIN, SERUM 6.8 g/dL (6.0-8.3)
[2020-02-08 08:01] VITALS: BP 99/74
[2020-02-08] MEDS: DEXAMETHASONE SOD PHOSPHATE 4 MG/ML 1ML VIAL IVP SCH (09:15)
[2020-02-08] MEDS: SPIRONOLACTONE 25 MG TAB PO SCH (09:16)
[2020-02-08] MEDS: ASPIRIN 81MG TAB.CHEW PO SCH (09:16)
[2020-02-08] MEDS: DOXYCYCLINE HYCLATE 100 MG TABLET PO SCH (09:16)
[2020-02-08] MEDS: ZINC SULFATE 220 CAPSULE PO SCH (09:16)
[2020-02-08] MEDS: ACETYLCYSTEINE 600 MG CAPSULE PO SCH (09:16)
[2020-02-08] MEDS: TICAGRELOR 90 MG TABLET PO SCH (09:16)
[2020-02-08] MEDS: ASCORBIC ACID 500 MG TAB PO SCH (09:17)
[2020-02-08] MEDS: METOPROLOL TARTRATE 25 MG TAB PO SCH (09:17)
[2020-02-08] MEDS: PANTOPRAZOLE SODIUM 40 MG TABLET.DR PO SCH (09:17)
[2020-02-08] MEDS: FUROSEMIDE 20 MG TABLET PO SCH (09:17)
[2020-02-08] MEDS: POTASSIUM CHLORIDE 10 MEQ/TAB.SA PO SCH (09:17)
--- NOTE | 2020-02-08 09:55 | NUR ---
INFORMED PT. AND RATIONALE EXPLAINED FOR PRONE POSITIONING, VERBALIZED UNDERSTANDING. OFFERED ASSISTANCE TO PT. FOR PRONE POSITIONING; EXERTIONAL SOB NOTED AND WEAKNESS. PT. ABLE TO TURN TO SEMI-PRONE POSITION. CALL LIGHT WITHIN REACH, VERBALIZED ABILITY TO USE.
--- NOTE | 2020-02-08 10:19 | NUR ---
DR. Malou CHIN IN ROOM SPEAKING WITH PT. PT. HAD ALREADY RETURNED TO A SUPINE POSITION ON HIS OWN; BED IN REVERSE [place]LENBURG POSITION. ADVISED PT. ONCE AGAIN RE:PRONE POSITIONING WHILE DR. CHIN PRESENT AND THIS NURSE MADE DR. CHIN AWARE PT. WAS ONLY SEMI-PRONE FOR APPROXIMATELY [address] Malou CHIN SPOKE WITH PT. RE:IMPORTANCE OF PRONE POSITIONING; PT. AGREES TO INSTRUCTIONS PROVIDED BUT DOES NOT COMPLY WITH TURNING OR ASKS FOR ASSISTANCE TO DO SO.
--- NOTE | 2020-02-08 10:59 | NUR ---
RESTING IN BED IN SUPINE POSITION WATCHING TELEVISION WITH RIGHT HAND BEHIND HIS NECK; APPEARS COMFORTABLE. VM IN PLACE. CALL LIGHT WITHIN REACH. BLINDS OPEN.
--- NOTE | 2020-02-08 11:09 | NUR ---
SEBASTIEN PLAN SPOKE TO PATIENT. SAID OKAY WITH GOING TO [facility]. SAID TO LET DAUGHTER KNOW AND TO HAVE HER CALL HIM LATER TODAY. SPOKE TO DAUGHTER. CALLED AT 900 SCHEDULED PREVIOUS DAY. PATIENT INFO PACKET CREATED AND FAXED. EMAILED TO [facility]. REP NOTIFIED. Addendum: 02/08/20 at 1112 by OSCAR CRUZ RN CM Amended: Links added.
[2020-02-08 12:23] VITALS: BP 116/76
--- NOTE | 2020-02-08 12:39 | NUR ---
DC PLAN PATIENT ACCEPTED. DR. ALLEN NOTIFIED PLAN FOR DC TODAY. MOT SIGNED AND COPY IN CHART. COVID AND EMS FILLED AND SENT. NURSE MIRTHA NOTIFIED OF ACCEPTANCE. INFO FLAGGED INCLUDING MED REC IN CHART WITH ORANGE PAPER. Addendum: 02/08/20 at 1241 by OSCAR CRUZ RN CM Amended: Links added.
--- NOTE | 2020-02-08 13:06 | NUR ---
RECEIVED CALL FROM PT.'S DAUGHTER, GEOVANNA, WHO STATES PT. WOULD LIKE TO SEND HIS KEYS AND BELONGINGS HOME PRIOR TO BEING DISCHARGED/TRANSFERRED TO [facility]. INFORMED DAUGHTER THIS NURSE WILL CHECK WITH PT. AND SECURITY RE:PROCESS TO SEND BELONGINGS HOME; DAUGHTER STATES, "OH, I ALREADY TALKED TO MY DAD ABOUT IT." INFORMED DAUGHTER THIS NURSE WOULD STILL HAVE TO SPEAK WITH PT. AND SECURITY TO TAKE APPROPRIATE STEPS TO SEND BELONGINGS HOME, DAUGHTER VERBALIZED UNDERSTANDING.
--- NOTE | 2020-02-08 14:44 | NUR ---
CALLED PT.'S DAUGHTER, GEOVANNA YANEZ, AND NOTIFIED SECURITY WILL BE HANDING PT.'S BELONGINGS, PER HIS REQUEST, TO FAMILY MEMBER COMING IN TO PICK THEM UP AT ENTRANCE. DAUGHTER VERBALIZED UNDERSTANDING.
[2020-02-08 16:00] VITALS: BP 93/71
[2020-02-08] MEDS ORDERED: WARFARIN SODIUM 5 MG TAB PO SCH (16:00)
--- NOTE | 2020-02-08 17:49 | NUR ---
REPORT TO SOILA WEBB RN AT [facility].
--- NOTE | 2020-02-08 17:50 | NUR ---
EMS TRANSPORT REQUESTED.
--- NOTE | 2020-02-08 18:30 | NUR ---
DISCHARGE INSTRUCTIONS GIVEN, VERBALIZED UNDERSTANDING. CELLULAR PHONE AND DOG SHOW JUDGE WITH PT.
== END 2020-02-08 20:03 | DRG 177 ==
LOC: EDH 05:36 → EDHIP 08:46 → 4AH 01-28 01:00 → 2BH 01-28 21:45 → 2AH 01-29 09:09
PROVIDERS: ADMIT Hospitalist; ATTEND Hospitalist
PROC: 5A09357 Assistance with Respiratory Ventilation, Less than 24 Consecutive Hours, Continuous Positive Airway Pressure (ICD-10-PCS; 2020-01-28)
PROC: 5A09357 Assistance with Respiratory Ventilation, Less than 24 Consecutive Hours, Continuous Positive Airway Pressure (ICD-10-PCS; 2020-01-29)
PROC: XW033E5 Introduction of Remdesivir Anti-infective into Peripheral Vein, Percutaneous Approach, New Technology Group 5 (ICD-10-PCS; principal; 2020-01-30)
PROC: 5A09357 Assistance with Respiratory Ventilation, Less than 24 Consecutive Hours, Continuous Positive Airway Pressure (ICD-10-PCS; 2020-01-31)
PROC: 5A09357 Assistance with Respiratory Ventilation, Less than 24 Consecutive Hours, Continuous Positive Airway Pressure (ICD-10-PCS; 2020-02-01)
DX: U07.1 COVID-19 (principal); J12.89 Other viral pneumonia; J96.01 Acute respiratory failure with hypoxia; I50.23 Acute on chronic systolic (congestive) heart failure; I26.99 Other pulmonary embolism without acute cor pulmonale; I21.09 ST elevation (STEMI) myocardial infarction involving other coronary artery of anterior wall; S36.119A Unspecified injury of liver, initial encounter; I82.431 Acute embolism and thrombosis of right popliteal vein; I24.9 Acute ischemic heart disease, unspecified; D72.828 Other elevated white blood cell count; I11.0 Hypertensive heart disease with heart failure; E11.9 Type 2 diabetes mellitus without complications; R94.5 Abnormal results of liver function studies; R74.0 Nonspecific elevation of levels of transaminase and lactic acid dehydrogenase [LDH]; E78.2 Mixed hyperlipidemia; E66.9 Obesity, unspecified; I25.5 Ischemic cardiomyopathy; I07.1 Rheumatic tricuspid insufficiency; I25.10 Atherosclerotic heart disease of native coronary artery without angina pectoris; R53.81 Other malaise; Z60.2 Problems related to living alone; Y93.89 Activity, other specified; Y92.89 Other specified places as the place of occurrence of the external cause; Y99.8 Other external cause status; I25.2 Old myocardial infarction; Z68.34 Body mass index [BMI] 34.0-34.9, adult; Z79.01 Long term (current) use of anticoagulants; Z79.02 Long term (current) use of antithrombotics/antiplatelets; Z79.82 Long term (current) use of aspirin; Z79.899 Other long term (current) drug therapy; Z86.19 Personal history of other infectious and parasitic diseases; Z82.49 Family history of ischemic heart disease and other diseases of the circulatory system
CPT/HCPCS: 36415; 36600; 71045; 71275; 80048; 80053; 80061; 81001; 82728; 82803; 82948; 83036; 83605; 83615; 83880; 84145; 84484; 85025; 85378; 85610; 85730; 86140; 86900; 86901; 87040; 87088; 87426; 93005; 93306; 93970; 94660; 97039; 99291; G0378; J0456; J0692; J0696; J1100; J1650; J1940; J2060; J2270; J2920; J3490; J7050; Q9967; U0003

== ENCOUNTER 2020-05-17 07:33 | Day surgery (SDC) | payer BC ==
[2020-05-15 09:10] LABS: BASOPHILS % (AUTO) 0.5 % (0.0-5.0); EOSINOPHILS % (AUTO) 0.7 % (0.0-8.0); LYMPHOCYTES % (AUTO) 25.9 % (21.0-51.0); MEAN CORPUSCULAR HEMOGLOBIN 31.3 pg (27.0-33.0); MEAN CORPUSCULAR HGB CONC 32.8 g/dL (32.0-36.0); MEAN CORPUSCULAR VOLUME 95.3 fL (79-99); MONOCYTES % (AUTO) 7.3 % (3.0-13.0); PLATELET COUNT (AUTO) 308 K/uL (130-400); RED BLOOD CELL COUNT(AUTO) 4.51 MIL/uL (4.50-6.20); RED CELL DISTRIBUTION WIDTH 13.5 % (11.0-15.5); WHITE BLOOD COUNT (AUTO) 12.6 K/uL (4.8-10.8)
[2020-05-15 09:11] LABS: APPEARANCE,URINE Clear (CLEAR); BILIRUBIN,URINE Negative (NEGATIVE); COLOR,URINE Yellow (YELLOW); GLUCOSE, URINE (UA) Negative (NEGATIVE); KETONES,URINE Negative (NEGATIVE); LEUKOCYTE ESTERASE ,URINE Negative (NEGATIVE); NITRATE,URINE Negative (NEGATIVE); OCCULT BLOOD,URINE Negative (NEGATIVE); PH,URINE 7.5 (5.0-8.0); PROTEIN,URINE Negative (NEGATIVE); UROBILINOGEN,URINE 0.2 mg/dL (0.2-1.0)
[2020-05-15 09:25] LABS: CREATININE 0.9 mg/dL (0.5-1.5); INR 0.91 (0.85-1.15); PARTIAL THROMBOPLASTIN TIME 26.1 SEC (26.3-35.5); POTASSIUM 4.8 mmol/L (3.5-5.1); PROTHROMBIN TIME 9.9 SEC (9.6-11.6)
--- NOTE | 2020-05-16 10:13 | NUR ---
DR CHIN NOTICED WITH ABNORMAL LABS AT [facility]. HE REVIEWED CXR. WILL PROCEED WITH LHC IN AM. ORDERS REPEAT CBC/BMP IN AM
[2020-05-16 11:16] VITALS: BP 104/63
[~2020-05-17] VITALS: Ht 167.6 cm; Wt 82.9 kg
[2020-05-17] VITALS (10 sets, daily range): BP systolic 82–107; BP diastolic 54–69
[~2020-05-17 07:33] MED LIST: ASCO500T20 PO; ASPI-1197 PO; FURO40TA5 PO; ICOS1CAP PO; IRON1CAP32 PO; LISI2.5T2 PO; METO-408 PO; PANT40TA54 PO; SODIUM CHLORIDE 0.9% 500ML 500 ML IV SCH; SPIR25TA6 PO; THIA100T75 PO; TICA90TA PO
[2020-05-17 08:16] LABS: HEMATOCRIT 40.5 % (42-54); MEAN CORPUSCULAR HEMOGLOBIN 31.6 pg (27.0-33.0); MEAN CORPUSCULAR HGB CONC 33.1 g/dL (32.0-36.0); MEAN CORPUSCULAR VOLUME 95.5 fL (79-99); RED BLOOD CELL COUNT(AUTO) 4.24 MIL/uL (4.50-6.20); RED CELL DISTRIBUTION WIDTH 13.3 % (11.0-15.5); WHITE BLOOD COUNT (AUTO) 8.9 K/uL (4.8-10.8)
[2020-05-17 08:27] LABS: CREATININE 0.8 mg/dL (0.5-1.5); POTASSIUM 4.9 mmol/L (3.5-5.1)
[2020-05-17] MEDS ORDERED: SODIUM CHLORIDE 0.9% 1000ML 1,000 ML IV ONE (08:40)
--- NOTE | 2020-05-17 09:37 | NUR ---
PT DIFFICULT IV START. I HAD 2 MISSED ATTEMPTS( RUE X 1/LUE X 1). IV WAS ESTABLISHED BY VAL RN X1 ATTEMPT TO LEFT FOREARM
[2020-05-17] MEDS ORDERED: LIDOCAINE HCL 2% 20ML ONE (10:03)
[2020-05-17] MEDS ORDERED: BIVALIRUDIN 250 MG/VIAL IV ONE (10:03)
[2020-05-17] MEDS ORDERED: NITROGLYCERIN 2 MG/VIAL VIAL IV ONE (10:03)
[2020-05-17] MEDS ORDERED: MIDAZOLAM HCL 1 MG/ML 2ML VIAL ONE (10:03)
[2020-05-17] MEDS ORDERED: IOHEXOL 350 MG/ML 100ML INFUS..BTL IV ONE (10:03)
[2020-05-17] MEDS ORDERED: IOHEXOL-350 50ML VIAL IV ONE (10:03)
[2020-05-17] MEDS ORDERED: FENTANYL CITRATE PF 50 MCG/1 ML 2ML VIAL ONE (11:23)
[2020-05-17] MEDS ORDERED: SODIUM CHLORIDE 0.9% 1000ML 1,000 ML IV SCH (11:45)
--- NOTE | 2020-05-17 12:00 | NUR ---
PT POST LHC. RT GROIN PERCLOSE WITH NO HEMATOMA OR BLEEDING. NO CHEST PAINB OR SOB. SBP IN THE 80"S AND DR CHIN IS AWARE.
--- NOTE | 2020-05-17 15:00 | NUR ---
PT ENDORSED TO MACRINA LUNDY. PT IS COMFORTABLE AND HAS NO HEMATOMA TO RT GROIN.
== END 2020-05-17 16:16 | disposition home or self-care (01) ==
LOC: DAH 07:33
PROVIDERS: ATTEND Internal Medicine Cardiovascular Disease
DX: I25.5 Ischemic cardiomyopathy (principal); I25.2 Old myocardial infarction; I11.0 Hypertensive heart disease with heart failure; I50.9 Heart failure, unspecified; E78.2 Mixed hyperlipidemia; I25.10 Atherosclerotic heart disease of native coronary artery without angina pectoris; Z79.82 Long term (current) use of aspirin; Z79.899 Other long term (current) drug therapy
CPT/HCPCS: 36415 ×2; 71045; 80048 ×2; 81003; 82948; 85025; 85027; 85610; 85730; 93005; 93458; A4215 ×2; A4216; A4221; A4222; A4223 ×3; A4606; A4663; C1760; C1894 ×2; J1644; J2250; J3010; J3490 ×2; J7030; Q9965 ×2; Q9967 ×2; 99156; 99157; J0583

== ENCOUNTER → 2020-06-27 | Outpatient (CLI) | payer BC ==
[~2020-06-27] MED LIST changes: -IRON1CAP32 PO; -SODIUM CHLORIDE 0.9% 500ML 500 ML IV SCH
== END | disposition home or self-care (01) ==
LOC: SHCH 07:53
PROVIDERS: ATTEND Internal Medicine Cardiovascular Disease
DX: I25.5 Ischemic cardiomyopathy (principal)
CPT/HCPCS: 78481; A9512

== ENCOUNTER → 2020-12-28 | Outpatient (CLI) | payer BC ==
[~2020-12-28] MED LIST changes: +AEC81 PO; -ASCO500T20 PO; -ASPI-1197 PO; +ATOR40TA71 PO; -ICOS1CAP PO; +LISI-809 PO; -LISI2.5T2 PO; -METO-408 PO; +METO100T7 PO; -PANT40TA54 PO; -THIA100T75 PO
== END | disposition home or self-care (01) ==
LOC: RAH 08:49
PROVIDERS: ATTEND Internal Medicine Cardiovascular Disease
DX: R06.00 Dyspnea, unspecified (principal); M47.815 Spondylosis without myelopathy or radiculopathy, thoracolumbar region
CPT/HCPCS: 71046

== ENCOUNTER 2020-12-30 23:24 | Emergency (ER) | payer BC ==
[~2020-12-30] VITALS: Ht 165.1 cm; Wt 93.0 kg
[2020-12-31] MEDS ORDERED: ASPIRIN 325 MG TABLET PO ONE
[2020-12-31] MEDS ORDERED: ASPIRIN 325 MG TABLET ONE (00:15)
[2020-12-31] MEDS ORDERED: FUROSEMIDE 40MG VIAL IV ONE (00:30)
[2020-12-31 00:38] VITALS: BP 101/57
[2020-12-31 00:59] LABS: BASOPHILS % (AUTO) 0.3 % (0.0-5.0); EOSINOPHILS % (AUTO) 2.4 % (0.0-8.0); HEMATOCRIT 40.3 % (42-54); LYMPHOCYTES % (AUTO) 30.4 % (21.0-51.0); MEAN CORPUSCULAR HEMOGLOBIN 31.9 pg (27.0-33.0); MEAN CORPUSCULAR HGB CONC 33.7 g/dL (32.0-36.0); MEAN CORPUSCULAR VOLUME 94.6 fL (79-99); MONOCYTES % (AUTO) 6.7 % (3.0-13.0); NEUTROPHILS % (AUTO) 59.9 % (40.0-77.0); PLATELET COUNT (AUTO) 230 K/uL (130-400); RED BLOOD CELL COUNT(AUTO) 4.26 MIL/uL (4.50-6.20); RED CELL DISTRIBUTION WIDTH 13.2 % (11.0-15.5); WHITE BLOOD COUNT (AUTO) 11.4 K/uL (4.8-10.8)
[2020-12-31 01:08] LABS: CREATININE 1.1 mg/dL (0.5-1.5); POTASSIUM 5.1 mmol/L (3.5-5.1)
[2020-12-31 01:13] LABS: ALBUMIN 3.7 g/dL (3.5-5.0); BILIRUBIN,TOTAL 0.5 mg/dL (0.2-1.0); TOTAL PROTEIN, SERUM 8.4 g/dL (6.0-8.3)
[2020-12-31 01:24] LABS: INR 0.98 (0.85-1.15); PROTHROMBIN TIME 10.7 SEC (9.6-11.6)
[2020-12-31 01:37] LABS: B-TYPE NATRIURETIC PEPTIDE 900 pg/mL (0-100)
[2020-12-31 02:24] LABS: APPEARANCE,URINE Clear (CLEAR); BILIRUBIN,URINE Negative (NEGATIVE); COLOR,URINE Yellow (YELLOW); GLUCOSE, URINE (UA) Negative (NEGATIVE); KETONES,URINE Negative (NEGATIVE); LEUKOCYTE ESTERASE ,URINE Negative (NEGATIVE); NITRATE,URINE Negative (NEGATIVE); OCCULT BLOOD,URINE Negative (NEGATIVE); PH,URINE 6.5 (5.0-8.0); PROTEIN,URINE Negative (NEGATIVE); UROBILINOGEN,URINE 0.2 mg/dL (0.2-1.0)
[2020-12-31 02:30] VITALS: BP 98/57
[2020-12-31 03:45] VITALS: BP 114/54
== END 2020-12-31 04:17 | disposition home or self-care (01) ==
LOC: EDH 23:24
DX: I50.9 Heart failure, unspecified (principal); R07.89 Other chest pain; E78.00 Pure hypercholesterolemia, unspecified; F41.9 Anxiety disorder, unspecified; Z98.890 Other specified postprocedural states; Z86.73 Personal history of transient ischemic attack (TIA), and cerebral infarction without residual deficits; Z79.899 Other long term (current) drug therapy; Z79.82 Long term (current) use of aspirin
CPT/HCPCS: 36415; 71045; 80053; 81003; 82550 ×2; 83735; 83880; 84484 ×2; 85025; 85610; 93005 ×2; 96374; 99285; J1940

== ENCOUNTER 2021-01-24 07:48 | Day surgery (SDC) | payer BC ==
[2021-01-22 11:24] LABS: BASOPHILS % (AUTO) 0.3 % (0.0-5.0); EOSINOPHILS % (AUTO) 1.6 % (0.0-8.0); HEMATOCRIT 42.1 % (42-54); LYMPHOCYTES % (AUTO) 31.8 % (21.0-51.0); MEAN CORPUSCULAR HEMOGLOBIN 31.7 pg (27.0-33.0); MEAN CORPUSCULAR HGB CONC 33.5 g/dL (32.0-36.0); MEAN CORPUSCULAR VOLUME 94.6 fL (79-99); MONOCYTES % (AUTO) 6.6 % (3.0-13.0); NEUTROPHILS % (AUTO) 59.2 % (40.0-77.0); PLATELET COUNT (AUTO) 220 K/uL (130-400); RED BLOOD CELL COUNT(AUTO) 4.45 MIL/uL (4.50-6.20); RED CELL DISTRIBUTION WIDTH 12.6 % (11.0-15.5); WHITE BLOOD COUNT (AUTO) 8.6 K/uL (4.8-10.8)
[2021-01-22 11:32] LABS: POTASSIUM 5.1 mmol/L (3.5-5.1)
[2021-01-22 11:34] LABS: INR 0.94 (0.85-1.15); PROTHROMBIN TIME 10.3 SEC (9.6-11.6)
[2021-01-22 11:36] LABS: PARTIAL THROMBOPLASTIN TIME 26.9 SEC (26.3-35.5)
[2021-01-22 12:50] LABS: APPEARANCE,URINE Clear (CLEAR); BILIRUBIN,URINE Negative (NEGATIVE); COLOR,URINE Yellow (YELLOW); GLUCOSE, URINE (UA) Negative (NEGATIVE); KETONES,URINE Negative (NEGATIVE); LEUKOCYTE ESTERASE ,URINE Negative (NEGATIVE); NITRATE,URINE Negative (NEGATIVE); OCCULT BLOOD,URINE Negative (NEGATIVE); PROTEIN,URINE Negative (NEGATIVE)
[2021-01-23 11:09] VITALS: BP 111/75
[~2021-01-24] VITALS: Ht 165.1 cm; Wt 94.0 kg
[2021-01-24] VITALS (9 sets, daily range): BP systolic 91–103; BP diastolic 53–69
[~2021-01-24 07:48] MED LIST changes: -AEC81 PO; +ALBU0.63 IH; +FLUT1AER IH; +VITAMIN D PO
[2021-01-24] MEDS ORDERED: 0.9%NACL 1000ML 1,000 ML IV SCH ×2 (08:00→12:00)
[2021-01-24] MEDS ORDERED: HEPARIN 10,000 UNIT/10ML (1,000 UNIT/ML) VIAL ONE (09:26)
[2021-01-24] MEDS ORDERED: BIVALIRUDIN 250 MG/VIAL IV ONE (09:26)
[2021-01-24] MEDS ORDERED: NITROGLYCERIN 2 MG VIAL IV ONE (09:26)
[2021-01-24] MEDS ORDERED: SODIUM BICARB 50MEQ 50ML VIAL 50 ML ONE (09:26)
[2021-01-24] MEDS ORDERED: FENTANYL CITRATE PF 50 MCG/1 ML 2ML VIAL ONE (09:27)
[2021-01-24] MEDS ORDERED: MIDAZOLAM HCL 1 MG/ML 2ML VIAL ONE (09:27)
[2021-01-24] MEDS ORDERED: LIDOCAINE HCL 400MG/20ML VIAL ONE (09:27)
[2021-01-24] MEDS ORDERED: IOHEXOL 350 MG/ML 100ML INFUS..BTL IV ONE (09:27)
[2021-01-24] MEDS ORDERED: IOHEXOL-350 75 ML VIAL IV ONE (09:27)
[2021-01-24] MEDS ORDERED: ADENOSINE 90MG VIAL IV ONE (10:40)
[2021-01-24] MEDS ORDERED: FUROSEMIDE 20MG VIAL IV SCH (12:00)
== END 2021-01-24 16:15 | disposition home or self-care (01) ==
LOC: DAH 07:48
PROVIDERS: ATTEND Internal Medicine Cardiovascular Disease
DX: I25.10 Atherosclerotic heart disease of native coronary artery without angina pectoris (principal); I27.20 Pulmonary hypertension, unspecified; I11.0 Hypertensive heart disease with heart failure; I50.42 Chronic combined systolic (congestive) and diastolic (congestive) heart failure; I25.5 Ischemic cardiomyopathy; I34.0 Nonrheumatic mitral (valve) insufficiency; E78.2 Mixed hyperlipidemia; I25.2 Old myocardial infarction; Z79.01 Long term (current) use of anticoagulants; Z79.82 Long term (current) use of aspirin; Z79.899 Other long term (current) drug therapy; Z98.890 Other specified postprocedural states; Z86.711 Personal history of pulmonary embolism
CPT/HCPCS: 36415; 71045; 80048; 81003; 85025; 85610; 85730; 93005; 93460; 93571; 93572 ×2; A4215; A4216; A4221; A4222; A4223 ×3; A4606; A4663; C1760; C1769 ×2; C1887 ×2; C1894 ×3; J0153; J1644 ×2; J1940; J2250; J3010; J3490 ×3; Q9965 ×2; Q9967 ×2; 96360; 96361; 99156; 99157; J0583

== ENCOUNTER 2022-07-17 17:08 | Emergency (ER) | payer BC, OTHER ==
[~2022-07-17] VITALS: Ht 165.1 cm; Wt 99.8 kg
[~2022-07-17 17:08] MED LIST changes: -ATOR40TA71 PO; -FURO40TA5 PO; -LISI-809 PO; -METO100T7 PO; -SPIR25TA6 PO
[2022-07-17] MEDS ORDERED: FUROSEMIDE 40MG VIAL IV ONE (20:30)
[2022-07-17] MEDS ORDERED: ASPIRIN 81MG CHEW TAB PO ONE (20:30)
[2022-07-17 21:24] LABS: BASOPHILS % (AUTO) 0.3 % (0.0-5.0); EOSINOPHILS % (AUTO) 2.3 % (0.0-8.0); HEMATOCRIT 43.5 % (42-54); LYMPHOCYTES % (AUTO) 29.3 % (21.0-51.0); MEAN CORPUSCULAR HEMOGLOBIN 31.6 pg (27.0-33.0); MEAN CORPUSCULAR HGB CONC 33.8 g/dL (32.0-36.0); MEAN CORPUSCULAR VOLUME 93.5 fL (79-99); MONOCYTES % (AUTO) 8.7 % (3.0-13.0); NEUTROPHILS % (AUTO) 59.2 % (40.0-77.0); PLATELET COUNT (AUTO) 198 K/uL (130-400); RED BLOOD CELL COUNT(AUTO) 4.65 MIL/uL (4.50-6.20); RED CELL DISTRIBUTION WIDTH 13.4 % (11.0-15.5); WHITE BLOOD COUNT (AUTO) 9.3 K/uL (4.8-10.8)
[2022-07-17 21:33] LABS: CREATININE 1.1 mg/dL (0.5-1.5); POTASSIUM 4.1 mmol/L (3.5-5.1)
[2022-07-17 21:38] LABS: ALBUMIN 3.5 g/dL (3.5-5.0); TOTAL PROTEIN, SERUM 7.7 g/dL (6.0-8.3)
[2022-07-17 21:54] LABS: B-TYPE NATRIURETIC PEPTIDE 158 pg/mL (0-100)
[2022-07-17 22:55] VITALS: BP 142/71
[2022-07-17] MEDS ORDERED: FURO-152 PO (23:25)
== END 2022-07-17 23:33 | disposition home or self-care (01) ==
LOC: EDH 17:08
DX: R60.0 Localized edema (principal); I11.0 Hypertensive heart disease with heart failure; I50.9 Heart failure, unspecified; E78.00 Pure hypercholesterolemia, unspecified; F41.9 Anxiety disorder, unspecified; Z79.51 Long term (current) use of inhaled steroids; Z79.899 Other long term (current) drug therapy
CPT/HCPCS: 99284; 96374; 71045; 84484; 80053; 83880; 85025; 36415; 93005; J1940; 96365; 96366

== ENCOUNTER 2022-10-17 20:38 | Emergency (ER) | payer BC ==
[~2022-10-17] VITALS: Ht 167.6 cm; Wt 109.8 kg
[~2022-10-17 20:38] MED LIST changes: +FURO-152 PO
[2022-10-18 00:07] VITALS: BP 107/67
[2022-10-18 00:09] LABS: BASOPHILS % (AUTO) 0.5 % (0.0-5.0); EOSINOPHILS % (AUTO) 1.1 % (0.0-8.0); LYMPHOCYTES % (AUTO) 26.2 % (21.0-51.0); MEAN CORPUSCULAR HEMOGLOBIN 31.9 pg (27.0-33.0); MEAN CORPUSCULAR VOLUME 93.8 fL (79-99); MONOCYTES % (AUTO) 8.6 % (3.0-13.0); NEUTROPHILS % (AUTO) 63.1 % (40.0-77.0); PLATELET COUNT (AUTO) 248 K/uL (130-400); RED BLOOD CELL COUNT(AUTO) 5.01 MIL/uL (4.50-6.20); RED CELL DISTRIBUTION WIDTH 12.6 % (11.0-15.5); WHITE BLOOD COUNT (AUTO) 11.1 K/uL (4.8-10.8)
[2022-10-18 00:27] LABS: APPEARANCE,URINE CLEAR (CLEAR); BILIRUBIN,URINE NEGATIVE (NEGATIVE); COLOR,URINE LIGHT-YELLOW (YELLOW); CREATININE 1.1 mg/dL (0.5-1.5); GLUCOSE, URINE (UA) >=1000 mg/dL (NEGATIVE); KETONES,URINE NEGATIVE (NEGATIVE); LEUKOCYTE ESTERASE ,URINE NEGATIVE Leu/uL (NEGATIVE); NITRATE,URINE NEGATIVE (NEGATIVE); PH,URINE 5.5 (5.0-8.0); POTASSIUM 4.9 mmol/L (3.5-5.1); PROTEIN,URINE NEGATIVE (NEGATIVE); UROBILINOGEN,URINE 0.2 mg/dL (0.2-1.0)
[2022-10-18 00:29] LABS: RBC,URINE 0-1 /HPF (0-1); WBC,URINE 0-1 /HPF (0-1)
[2022-10-18 00:32] LABS: ALBUMIN 4.2 g/dL (3.5-5.0)
[2022-10-18] MEDS ORDERED: ACET-2079 PO (00:46)
[2022-10-18] MEDS ORDERED: CEFU500T67 PO (00:46)
[2022-10-18] MEDS ORDERED: BACITRACIN 1 EACH PACKET TP ONE (00:55)
[2022-10-18] MEDS ORDERED: MUPIROCIN OINTMENT 22 GM TUBE TP SCH (01:00)
[2022-10-18] MEDS ORDERED: CEFTRIAXONE 1G VIAL IM ONE (01:00)
[2022-10-18] MEDS ORDERED: ACETAMINOPHEN WITH CODEINE 1 TAB TAB PO ONE (01:00)
== END 2022-10-18 01:12 | disposition home or self-care (01) ==
LOC: EDH 20:38
DX: E11.621 Type 2 diabetes mellitus with foot ulcer (principal); E78.00 Pure hypercholesterolemia, unspecified; I10 Essential (primary) hypertension; Z79.51 Long term (current) use of inhaled steroids; Z79.899 Other long term (current) drug therapy
CPT/HCPCS: 99284; 80053; 85025; 87040 ×2; 83605; 81001; 36415; 96372; 84145; J0696

== ENCOUNTER 2022-11-21 02:30 | Emergency (ER) | payer BC ==
[~2022-11-21] VITALS: Ht 167.6 cm; Wt 103.4 kg
[~2022-11-21 02:30] MED LIST changes: +ACET-2079 PO; +CEFU500T67 PO
[2022-11-21 04:15] LABS: BASOPHILS % (AUTO) 0.4 % (0.0-5.0); EOSINOPHILS % (AUTO) 1.7 % (0.0-8.0); LYMPHOCYTES % (AUTO) 25.5 % (21.0-51.0); MEAN CORPUSCULAR HEMOGLOBIN 31.4 pg (27.0-33.0); MEAN CORPUSCULAR HGB CONC 33.3 g/dL (32.0-36.0); MEAN CORPUSCULAR VOLUME 94.1 fL (79-99); MONOCYTES % (AUTO) 9.5 % (3.0-13.0); NEUTROPHILS % (AUTO) 62.3 % (40.0-77.0); PLATELET COUNT (AUTO) 295 K/uL (130-400); RED BLOOD CELL COUNT(AUTO) 4.78 MIL/uL (4.50-6.20); RED CELL DISTRIBUTION WIDTH 12.4 % (11.0-15.5); WHITE BLOOD COUNT (AUTO) 7.2 K/uL (4.8-10.8)
[2022-11-21 04:24] LABS: CREATININE 1.4 mg/dL (0.5-1.5); POTASSIUM 4.4 mmol/L (3.5-5.1)
[2022-11-21] MEDS ORDERED: VANCOMYCIN 1G VIAL IVPB ONE (04:30)
[2022-11-21] MEDS ORDERED: ZOSYN 3.375GM +NS 50ML IVPB ONE (04:30)
[2022-11-21 05:11] LABS: B-TYPE NATRIURETIC PEPTIDE 39 pg/mL (0-100)
[2022-11-21] MEDS ORDERED: VANCOMYCIN 1G/250ML KIT 250 ML IV ONE (05:30)
[2022-11-21 06:02] LABS: INR 0.98 (0.85-1.15); PROTHROMBIN TIME 10.7 SEC (9.6-11.6)
[2022-11-21 06:04] LABS: PARTIAL THROMBOPLASTIN TIME 30.8 SEC (26.3-35.5)
[2022-11-21 06:47] LABS: APPEARANCE,URINE CLEAR (CLEAR); BILIRUBIN,URINE NEGATIVE (NEGATIVE); COLOR,URINE LIGHT-YELLOW (YELLOW); GLUCOSE, URINE (UA) >=1000 mg/dL (NEGATIVE); KETONES,URINE NEGATIVE (NEGATIVE); LEUKOCYTE ESTERASE ,URINE NEGATIVE Leu/uL (NEGATIVE); NITRATE,URINE NEGATIVE (NEGATIVE); OCCULT BLOOD,URINE NEGATIVE (NEGATIVE); PROTEIN,URINE NEGATIVE (NEGATIVE); UROBILINOGEN,URINE 0.2 mg/dL (0.2-1.0)
[2022-11-21] MEDS ORDERED: HYD25 PO (07:04)
[2022-11-21] MEDS ORDERED: CEFU500T67 PO (07:04)
[2022-11-21 07:08] LABS: BACTERIA,URINE RARE /HPF (None Seen); MUCUS,URINE RARE LPF (None Seen); WBC,URINE 0-1 /HPF (0-1)
[2022-11-21 08:26] VITALS: BP 119/70
== END 2022-11-21 08:43 | disposition home or self-care (01) ==
LOC: EDH 02:30
DX: L02.416 Cutaneous abscess of left lower limb (principal); L02.415 Cutaneous abscess of right lower limb; E11.9 Type 2 diabetes mellitus without complications; E78.00 Pure hypercholesterolemia, unspecified; I10 Essential (primary) hypertension; Z79.51 Long term (current) use of inhaled steroids; Z79.899 Other long term (current) drug therapy; Z86.73 Personal history of transient ischemic attack (TIA), and cerebral infarction without residual deficits
CPT/HCPCS: 99284; 96365; 93971; 71045; 96366; 82550; 84484; 80053; 83880; 85025; 85610; 85730; 87040 ×2; 87077; 87088; 87186; 83605; 81001; 36415; 96368; J2543; J3370

== ENCOUNTER 2024-05-07 06:36 | Day surgery (SDC) | payer MEDICAID ==
[2024-05-03 09:58] LABS: BASOPHILS # (AUTO) 0.04 K/uL (0.00-0.20); BASOPHILS % (AUTO) 0.6 % (0.0-5.0); EOSINOPHILS # (AUTO) 0.21 K/uL (0.00-0.70); EOSINOPHILS % (AUTO) 3.1 % (0.0-8.0); HEMATOCRIT 45.5 % (42-54); IMMATURE GRANULOCYTE ABSOLUTE 0.02 K/uL (0-1); LYMPHOCYTES # (AUTO) 1.8 K/uL (1.0-4.8); LYMPHOCYTES % (AUTO) 25.9 % (21.0-51.0); MEAN CORPUSCULAR HEMOGLOBIN 31.9 pg (27.0-33.0); MEAN CORPUSCULAR HGB CONC 33.2 g/dL (32.0-36.0); MEAN CORPUSCULAR VOLUME 96.2 fL (79-99); MONOCYTES # (AUTO) 0.7 K/uL (0.1-1.0); MONOCYTES % (AUTO) 9.5 % (3.0-13.0); NEUTROPHILS # (AUTO) 4.2 K/uL (1.8-7.7); NEUTROPHILS % (AUTO) 60.6 % (40.0-77.0); PLATELET COUNT (AUTO) 205 K/uL (130-400); RED BLOOD CELL COUNT(AUTO) 4.73 MIL/uL (4.50-6.20); RED CELL DISTRIBUTION WIDTH 12.5 % (11.0-15.5); WHITE BLOOD COUNT (AUTO) 6.8 K/uL (4.8-10.8)
[2024-05-03 10:07] VITALS: BP 128/75; PULSE 64; RESP 18; TEMP 97.2
[2024-05-03 10:28] LABS: APPEARANCE,URINE CLEAR (CLEAR); BILIRUBIN,URINE NEGATIVE (NEGATIVE); COLOR,URINE LIGHT-YELLOW (YELLOW); GLUCOSE, URINE (UA) >=1000 mg/dL (NEGATIVE); KETONES,URINE NEGATIVE (NEGATIVE); LEUKOCYTE ESTERASE ,URINE NEGATIVE Leu/uL (NEGATIVE); NITRATE,URINE NEGATIVE (NEGATIVE); OCCULT BLOOD,URINE NEGATIVE (NEGATIVE); PROTEIN,URINE NEGATIVE (NEGATIVE); UROBILINOGEN,URINE 0.2 mg/dL (0.2-1.0)
[2024-05-03 10:36] LABS: ADD UA MICROSCOPIC YES
[2024-05-03 10:51] LABS: INR 3.63 (0.85-1.15); PROTHROMBIN TIME 35.6 SEC (9.6-11.6)
[2024-05-03 10:54] LABS: MUCUS,URINE RARE LPF (None Seen); WBC,URINE 0-1 /HPF (0-1)
[2024-05-03 11:32] LABS: PARTIAL THROMBOPLASTIN TIME 27.3 SEC (26.3-35.5)
[~2024-05-07] VITALS: Ht 165.1 cm; Wt 97.2 kg
[~2024-05-07 06:36] MED LIST changes: -ACET-2079 PO; -ALBU0.63 IH; +APIX5TAB PO; +ATOR40TA71 PO; +CARV3.12 PO; -CEFU500T67 PO; +DAPA5TAB PO; +FLUO-418 PO; -FLUT1AER IH; -FURO-152 PO; +LOPE2 PO; +MAGN400T7 PO; +OMEP-420 PO; +SPIR25TA6 PO; +TEMA30CA PO; -TICA90TA PO; +TRAM50TA4 PO; +TRAZ-187 PO; -VITAMIN D PO
[2024-05-07 06:50] VITALS: BP 104/69; PULSE 73; RESP 17; TEMP 96.6
[2024-05-07] MEDS ORDERED: INDOCYANINE GREEN 25 MG VIAL IJ ONE (07:19)
[2024-05-07 07:29] LABS: CREATININE 1.1 mg/dL (0.5-1.3); POTASSIUM 4.1 mmol/L (3.5-5.1)
[2024-05-07 07:31] LABS: INR 1.04 (0.85-1.15); PROTHROMBIN TIME 11.2 SEC (9.6-11.6)
[2024-05-07] MEDS ORDERED: GLYCOPYRROLATE 0.2 MG/ML 5 ML VIAL ONE (07:48)
[2024-05-07] MEDS ORDERED: dexaMETHasone SOD PHOSPHATE 10MG/ML 1ML VIAL ONE (07:48)
[2024-05-07] MEDS ORDERED: LIDOCAINE PF 100MG/5ML (2%) SYRINGE 5ML ONE (07:48)
[2024-05-07] MEDS ORDERED: NEOSTIGMINE METHYLSULFATE 1MG/ML IV ONE (07:48)
[2024-05-07] MEDS ORDERED: SUCCINYLCHOLINE CHLORIDE 20 MG/ML 10 ML VIAL ONE (07:48)
[2024-05-07] MEDS ORDERED: ondanSETRON 4MG INJ ONE (07:48)
[2024-05-07] MEDS ORDERED: proPOFol 10 MG/ML 20ML VIAL IV ONE (07:48)
[2024-05-07] MEDS ORDERED: MIDAZOLAM HCL 1 MG/ML 2ML VIAL ONE (07:49)
[2024-05-07] MEDS: DEXTROSE 50%-WATER 50 ML DISP.SYRIN IV ONE (07:49)
[2024-05-07] MEDS ORDERED: rocuRONium bROMide 10MG/1ML 5ML VL ONE (07:49)
[2024-05-07] MEDS: 0.9%NACL 1000ML 1,000 ML IV ONE (07:49)
[2024-05-07] MEDS: ceFAZolin SODIUM 2 GM VIAL ONE (07:49)
[2024-05-07] MEDS ORDERED: FENTanyl CITRate PF 50 MCG/1 ML 2ML VIAL ONE (07:49)
[2024-05-07] MEDS ORDERED: BUPIvacaine/PF 0.5% 30ML VIAL ONE (08:23)
== END 2024-05-07 09:20 | disposition home or self-care (01) ==
LOC: DAH 06:36
PROVIDERS: ATTEND Student in an Organized Health Care Education/Training Program
DX: Z01.812 Encounter for preprocedural laboratory examination (principal); K42.9 Umbilical hernia without obstruction or gangrene; K80.13 Calculus of gallbladder with acute and chronic cholecystitis with obstruction; Z79.01 Long term (current) use of anticoagulants; Z53.8 Procedure and treatment not carried out for other reasons
CPT/HCPCS: 85025; 85610 ×2; 85730; 81001; 36415 ×2; 93005; 80048; 82948 ×2; A6260; A4663; J1100; J7030; J7070; J2003; A4215; A4223; A4222; A4221; A4600; J0330; J2250; J2405; J2704; J2710; J3010; J3490; J0665; J0690

== ENCOUNTER → 2024-05-20 | Outpatient (CLI) | payer MEDICAID ==
[~2024-05-20] MED LIST changes: +PERFLUTREN PROTEIN-A MICROSPHR 0.22 MG/ML VIAL IV ONE
== END | disposition home or self-care (01) ==
LOC: RAH 12:38
PROVIDERS: ATTEND Internal Medicine Cardiovascular Disease
DX: I50.22 Chronic systolic (congestive) heart failure (principal)
CPT/HCPCS: C8929; Q9956; C8924

== ENCOUNTER 2024-06-18 06:51 | Day surgery (SDC) | payer MEDICAID ==
[2024-06-14 10:57] VITALS: BP 131/80; PULSE 59; RESP 17; TEMP 97.2
[2024-06-14 11:14] LABS: APPEARANCE,URINE CLEAR (CLEAR); BILIRUBIN,URINE NEGATIVE (NEGATIVE); COLOR,URINE LIGHT-YELLOW (YELLOW); GLUCOSE, URINE (UA) >=1000 mg/dL (NEGATIVE); KETONES,URINE NEGATIVE (NEGATIVE); LEUKOCYTE ESTERASE ,URINE NEGATIVE Leu/uL (NEGATIVE); NITRATE,URINE NEGATIVE (NEGATIVE); PH,URINE 5.5 (5.0-8.0); UROBILINOGEN,URINE 0.2 mg/dL (0.2-1.0)
[2024-06-14 11:15] LABS: ADD UA MICROSCOPIC YES; PROTEIN,URINE NEGATIVE (NEGATIVE)
[2024-06-14 11:15] LABS: CREATININE 0.9 mg/dL (0.5-1.3); POTASSIUM 4.5 mmol/L (3.5-5.1)
[2024-06-14 11:16] LABS: MUCUS,URINE RARE LPF (None Seen); RBC,URINE 0-1 /HPF (0-1); SQUAMOUS EPITHELIAL CELL,UR RARE /HPF (0-2); WBC,URINE 0-1 /HPF (0-1)
[2024-06-14 11:26] LABS: PROTHROMBIN TIME 10.8 SEC (9.6-11.6)
[2024-06-14 11:27] LABS: PARTIAL THROMBOPLASTIN TIME 31.5 SEC (26.3-35.5)
[2024-06-14 11:52] LABS: BASOPHILS # (AUTO) 0.02 K/uL (0.00-0.20); BASOPHILS % (AUTO) 0.3 % (0.0-5.0); EOSINOPHILS # (AUTO) 0.15 K/uL (0.00-0.70); EOSINOPHILS % (AUTO) 2.5 % (0.0-8.0); HEMATOCRIT 52.2 % (42-54); IMMATURE GRANULOCYTE ABSOLUTE 0.01 K/uL (0-1); LYMPHOCYTES # (AUTO) 2.3 K/uL (1.0-4.8); LYMPHOCYTES % (AUTO) 37.6 % (21.0-51.0); MEAN CORPUSCULAR HEMOGLOBIN 31.5 pg (27.0-33.0); MEAN CORPUSCULAR HGB CONC 33.1 g/dL (32.0-36.0); MEAN CORPUSCULAR VOLUME 94.9 fL (79-99); MONOCYTES # (AUTO) 0.4 K/uL (0.1-1.0); NEUTROPHILS # (AUTO) 3.1 K/uL (1.8-7.7); NEUTROPHILS % (AUTO) 52.4 % (40.0-77.0); PLATELET COUNT (AUTO) 173 K/uL (130-400); RED CELL DISTRIBUTION WIDTH 12.7 % (11.0-15.5)
[~2024-06-18] VITALS: Ht 167.6 cm; Wt 93.9 kg
[2024-06-18] VITALS (15 sets, daily range): BP systolic 103–132; BP diastolic 50–76; PULSE 62–81; RESP 12–16; TEMP 97.2–97.6
[2024-06-18] MEDS: BUPIvacaine/PF 0.5% 30ML VIAL ONE
[~2024-06-18 06:51] MED LIST changes: -PERFLUTREN PROTEIN-A MICROSPHR 0.22 MG/ML VIAL IV ONE; +SACU1TAB7 PO
[2024-06-18] MEDS: ceFAZolin SODIUM 2 GM VIAL ONE (06:57)
[2024-06-18] MEDS ORDERED: acetaMINOPHEN 100 ML ONE (07:19)
[2024-06-18] MEDS ORDERED: proPOFol 10 MG/ML 20ML VIAL IV ONE (07:33)
[2024-06-18] MEDS ORDERED: phenylEPHRINE HCL 10 MG/ML 1ML VIAL IV ONE (07:33)
[2024-06-18] MEDS ORDERED: MIDAZOLAM HCL 1 MG/ML 2ML VIAL ONE (07:33)
[2024-06-18] MEDS ORDERED: SUCCINYLCHOLINE CHLORIDE 20 MG/ML 10 ML VIAL ONE (07:33)
[2024-06-18] MEDS ORDERED: rocuRONium bROMide 10MG/1ML 5ML VL ONE ×2 (07:33→11:19)
[2024-06-18] MEDS ORDERED: ondanSETRON 4MG INJ ONE (07:33)
[2024-06-18] MEDS ORDERED: FENTanyl CITRate PF 50 MCG/1 ML 2ML VIAL ONE ×2 (07:34→11:48)
[2024-06-18] MEDS ORDERED: INDOCYANINE GREEN 25 MG VIAL IJ ONE (08:04)
[2024-06-18] MEDS: LACTATED RINGERS 1000ML 1,000 ML IV ONE (09:46)
[2024-06-18] MEDS: INDOCYANINE GREEN 25 MG VIAL IJ ONE (10:15)
[2024-06-18] MEDS ORDERED: ePHEDrine SULFate 50 MG/ML AMPULE ONE (10:43)
[2024-06-18] MEDS ORDERED: NEOSTIGMINE METHYLSULFATE 1MG/ML IV ONE (11:36)
[2024-06-18] MEDS ORDERED: GLYCOPYRROLATE 0.2 MG/ML 5 ML VIAL ONE (11:36)
[2024-06-18] MEDS: MEPERIDINE-PF 25 MG/ML SYG ONE (12:17)
--- NOTE | 2024-06-18 13:01 | OP ---
Operative Note: DATE OF PROCEDURE: 06/18/24 PROCEDURE PERFORMED: Robotic cholecystectomy. Open umbilical hernia repair of incarcerated 1.5 cm umbilical hernia PREOPERATIVE DIAGNOSIS: Symptomatic cholelithiasis, umbilical hernia POSTOPERATIVE DIAGNOSIS: Same ANESTHESIA: General endotracheal. SURGEON: Dalia Donald MD DEVICE LEFT IN PLACE: None. FLUIDS AND BLOOD PRODUCTS: Per anesthesia report. SPECIMENS REMOVED: Gallbladder. hernia sac COMPLICATIONS: None immediate. PATIENT CONDITION: Stable. Blood loss: Minimal DESCRIPTION OF PROCEDURE: The patient was brought to the operating room and placed on the operating table in a supine position. Once general endotracheal anesthesia was achieved the patient's abdomen is prepped and draped in sterile fashion. We then proceeded to create a midline incision under the umbilicus and a semilunar fashion and dissected through the skin and subcutaneous tissue to expose the hernia sac. Proceeded to dissect around the hernia sac and opened the hernia sac and found that there was omentum incarcerated within the hernia sac. I released the omentum off of the hernia sac and reduced it back into the abdomen and then proceeded to release the hernia sac from the fascial edges in the subcutaneous tissue and handed it off for specimen. The hernia defect measured 1.5 cm in size. Through the hernia defect I introduced the origin trocar and obtain a pneumoperitoneum. Under direct visualization we then placed a 8 mm robotic port in the right right flank and right lower quadrant and left mid abdomen, making sure we were 8 cm away from our camera port. We then placed the patient in reverse Trendelenburg delivered and rotated to forward to the left side. Brought the robot over top of the patient right and docked the robot. I then proceeded to retract the gallbladder from the fundus and infundibulum and started our dissection of the hilum. We bluntly dissected the hilum to expose the cystic duct and cystic artery and once we had a critical view for safety, which was confirmed with firefly technology. We proceeded to place two clips in the cystic duct proximally and distally. We divided and then did the same with our cystic artery. We then proceeded to remove the gallbladder off the liver bed using Bovie cautery. Once this was done, we then proceeded to evaluate the liver bed for hemostasis. We made sure there was no bile leaks or any bleeding. We then proceeded to undocked our all her instruments and the robot. Using the 8 mm camera we then proceeded to place a gallbladder into the Endo Catch bag and then removing the gallbladder through the umbilical port in the EndoCatch bag. We removed all our trochars from the abdominal wall. No bleeding. We then closed hernia defect with primary suture 0 PDS in [id number] fashion x3. The skin incisions were closed using 4-0 Monocryl in running subcuticular fa shion and Dermabond is applied over top. Pressure dressing is applied at the umbilicus and an abdominal binder is placed. The patient tolerated the procedure well. All counts correct x2 at the end of the procedure DALIA DONALD MD Jun 18, 2024 13:01
--- NOTE | 2024-06-18 13:17 | NUR ---
Patient aox4. Denies c/o pain or discomfort. Surgical Laparoscopic sites clean, dry and intact. Voiced understanding to surgical site precautions and follow up expectations. Ambulated to bathroom with standby walker assist. Voided large amount of clear urine. PIV discontinued with catheter tip intact. Full and complete Discharge instructions given to Patient and Friend All questions answered. W/C to POV with Friend to Home. Call your doctor if: Severe pain not easily relieved. Fever greater than 101 F. Difficulty breathing. Excessive dizziness. Rash breaks out. Excessive nausea or vomiting. Any other medical problems of your concern. Foul-smelling or unusual drainage to incision/dressing. Excessive bleeding to incision/dressing. Numbness/tingling to affected extremity. Unable to pass urine for more than 6 to 8 hours after discharge.
== END 2024-06-18 13:22 | disposition home or self-care (01) ==
LOC: DAH 06:51
PROVIDERS: ATTEND Student in an Organized Health Care Education/Training Program
DX: K80.10 Calculus of gallbladder with chronic cholecystitis without obstruction (principal); K42.0 Umbilical hernia with obstruction, without gangrene; I10 Essential (primary) hypertension; E78.5 Hyperlipidemia, unspecified; K21.9 Gastro-esophageal reflux disease without esophagitis; Z86.73 Personal history of transient ischemic attack (TIA), and cerebral infarction without residual deficits; Z95.810 Presence of automatic (implantable) cardiac defibrillator; Z79.01 Long term (current) use of anticoagulants; Z79.899 Other long term (current) drug therapy
CPT/HCPCS: 80048; 85025; 85610; 85730; 81001; 36415; 49592; 47563; 64488; 88302; 88304; A6260; A4663; J7030; J7120; J3010 ×2; J0330; J3490 ×4; J2250; J2704; J2405; J2710; J0665; J2175; J2371; J0690; A4215; A4213; A4222; A4221; A4216; A4450; A4223 ×2; A4600; S2900

== ENCOUNTER → 2024-10-27 | Outpatient (CLI) | payer MEDICAID ==
[2024-10-27 12:17] LABS: BASOPHILS # (AUTO) 0.05 K/uL (0.00-0.20); BASOPHILS % (AUTO) 0.4 % (0.0-5.0); EOSINOPHILS # (AUTO) 0.19 K/uL (0.00-0.70); EOSINOPHILS % (AUTO) 1.7 % (0.0-8.0); HEMATOCRIT 51.8 % (42-54); IMMATURE GRANULOCYTE ABSOLUTE 0.05 K/uL (0-1); LYMPHOCYTES # (AUTO) 2.8 K/uL (1.0-4.8); LYMPHOCYTES % (AUTO) 24.8 % (21.0-51.0); MEAN CORPUSCULAR HEMOGLOBIN 32.6 pg (27.0-33.0); MEAN CORPUSCULAR HGB CONC 33.6 g/dL (32.0-36.0); MEAN CORPUSCULAR VOLUME 97.2 fL (79-99); MONOCYTES # (AUTO) 0.9 K/uL (0.1-1.0); MONOCYTES % (AUTO) 7.7 % (3.0-13.0); NEUTROPHILS # (AUTO) 7.2 K/uL (1.8-7.7); PLATELET COUNT (AUTO) 201 K/uL (130-400); RED BLOOD CELL COUNT(AUTO) 5.33 MIL/uL (4.50-6.20); WHITE BLOOD COUNT (AUTO) 11.1 K/uL (4.8-10.8)
[2024-10-27 12:29] LABS: ALBUMIN 3.9 g/dL (3.5-5.0); BILIRUBIN,TOTAL 0.8 mg/dL (0.2-1.0); POTASSIUM 4.4 mmol/L (3.5-5.1)
== END | disposition home or self-care (01) ==
LOC: LAB 09:26
PROVIDERS: ATTEND Internal Medicine Cardiovascular Disease
DX: I11.0 Hypertensive heart disease with heart failure (principal); I50.22 Chronic systolic (congestive) heart failure
CPT/HCPCS: 36415; 80053; 80061; 83880; 85025

== ENCOUNTER → 2024-12-27 | Outpatient (CLI) | payer MEDICAID ==
[2024-12-27 11:51] LABS: CREATININE 0.9 mg/dL (0.5-1.3); POTASSIUM 5.2 mmol/L (3.5-5.1)
--- NOTE | 2024-12-27 14:21 | HMCIMG ---
CHEST 2VWS HISTORY: Orthopnea COMPARISON: None FINDINGS: Frontal and lateral projections of the chest were obtained. There is no acute pulmonary infiltrates or failure. The heart is borderline enlarged. No evidence of aortic calcification is seen. Degenerative changes are seen of the thoracolumbar spine. Pacemaker is seen entering from the left. IMPRESSION: 1. No acute pulmonary infiltrates.
== END | disposition home or self-care (01) ==
LOC: RAH 10:36
PROVIDERS: ATTEND Internal Medicine Cardiovascular Disease
DX: R06.01 Orthopnea (principal); I50.42 Chronic combined systolic (congestive) and diastolic (congestive) heart failure; M47.815 Spondylosis without myelopathy or radiculopathy, thoracolumbar region; Z95.0 Presence of cardiac pacemaker
CPT/HCPCS: 36415; 71046; 80048; 83735; 83880

== ENCOUNTER 2025-01-19 09:45 | Emergency (ER) | payer MEDICAID ==
[~2025-01-19] VITALS: Ht 167.6 cm; Wt 99.8 kg
[2025-01-19 10:14] LABS: IMMATURE GRANULOCYTE ABSOLUTE 0.03 K/uL (0-1); NUCLEATED RED BLOOD CELLS 0.0 % (0.0-0.19); PLATELET COUNT (AUTO) 181 K/uL (130-400); RED BLOOD CELL COUNT(AUTO) 4.58 MIL/uL (4.50-6.20); RED CELL DISTRIBUTION WIDTH 13.0 % (11.0-15.5); WHITE BLOOD COUNT (AUTO) 7.5 K/uL (4.8-10.8)
[2025-01-19 10:18] LABS: CREATININE 0.8 mg/dL (0.5-1.3); GLOMERULAR FILTR. RATE CALC 104.0 mL/min (>90); GLUCOSE,RANDOM 106.0 mg/dL (70-105); SODIUM SERUM 139.0 mmol/L (136-145); UREA NITROGEN, BLOOD 22.0 mg/dL (7-18)
--- NOTE | 2025-01-19 10:21 | ERN ---
General Chief Complaint: Other Problems Stated Complaint: SOB Time Seen by MD: 09:54 Source: patient History of Present Illness Initial Comments Patient is a 54-year-old gentleman coming in complaining of shortness of breath. Patient states he has a cardiac history and frequently presents with congestion. He states that these symptoms began a couple of days ago. Allergies: Coded Allergies: No Known Allergies (Verified Allergy, Unknown, 01/27/20) Home Meds Reported Medications Sacubitril/Valsartan (Entresto 49 mg-51 mg Tablet) 49 Mg-51 Mg Tablet, 1 EACH PO BID, TAB 06/14/24 Apixaban (Eliquis) 5 Mg Tablet, 5 MG PO BID, TAB 05/03/24 Spironolactone (Spironolactone) 25 Mg Tablet, 12.5 MG PO DAILY, TAB 05/03/24 Tramadol Hcl (Tramadol HCl) 50 Mg Tablet, 50 MG PO Q6HPRN PRN for PAIN, TAB 05/03/24 Trazodone HCl (Trazodone HCl) 100 Mg Tablet, 100 MG PO HS, TAB 05/03/24 Dapagliflozin Propanediol (Farxiga) 5 Mg Tablet, 5 MG PO HS, TAB 05/03/24 Atorvastatin Calcium (Atorvastatin Calcium) 40 Mg Tablet, 40 MG PO HS, TAB 05/03/24 Magnesium Oxide (Mag-Ox) 400 Mg Tab, 400 MG PO BID, TAB 05/03/24 Loperamide HCl (Imodium) 2 Mg Cap, 2 MG PO Q6HPRN PRN for DIARRHEA, CAP 05/03/24 Omeprazole (Omeprazole) 20 Mg Tab.rap.dr, 20 MG PO DAILY 05/03/24 Temazepam (Temazepam) 30 Mg Capsule, 30 MG PO HS, CAP 05/03/24 Fluoxetine HCl (Fluoxetine HCl) 20 Mg Capsule, 20 MG PO DAILY, CAP 05/03/24 Carvedilol (Carvedilol) 3.125 Mg Tablet, 3.125 MG PO BID, TAB 03/25/23 Past Medical History Past Medical History: CAD, CHF, Diabetes-Type II, High Cholesterol, Heart Disease, Hypertension, Liver Disease Medical History Other: KIDNEY CA Past Surgical History: Pacer/AICD Surgical History Other: HERNIA REPAIR Family History Family History: Negative Social History Social History: Negative, Lives with family ROS Dictation CONSTITUTIONAL: No chills, no fever, no weakness, no diaphoresis, no malaise. HEAD/FACE: No signs of trauma. EENT: No eye pain, no blurred vision, no tearing, no double vision, no ear pain, no ear discharge, no nose pain, no nasal congestion, no throat pain, no throat swelling, no mouth pain. RESPIRATORY: No cough, no orthopnea, SOB, no stridor, no wheezing. CARDIOVASCULAR: No chest pain, no edema, no palpitations, no syncope. GASTROINTESTINAL/ABDOMINAL: No abdominal pain, no constipation, no diarrhea, no nausea, no vomiting. GENITOURINARY: No abnormal discharge, no dysuria, no frequent urination, no hematuria. No complaints of pain in the genitals. MUSCULOSKELETAL: No back pain, no gout, no joint pain, no joint swelling, no muscle pain, no muscle stiffness, no neck pain. INTEGUMENTARY: No change in color, no change in hair/nails, no dryness, no lesion, no lumps, no rash. NEUROLOGICAL/PSYCH: No anxiety, not depressed, no emotional problem, no headache, no numbness, no pre-existing deficit, no history of seizures, no tremors, no weakness. HEMATOLOGIC/LYMPHATIC: Not anemic, no history of blood clots, no apparent bleeding, no bruising, glands not swollen. All Systems Negative, Except as Noted. Physical Exam Physical Exam Dictation VITAL SIGNS: Reviewed. GENERAL APPEARANCE: Alert, oriented x3, no acute distress, obese. HEAD AND FACE: Non-traumatic. EYES: PERRL, pink conjunctivas, eyelid no trauma, anterior chamber clear. EARS: Pinnas intact and no signs of trauma or erythema. Ear canals clear and no discharge. TMs no erythema. NOSE: No discharge, no bleeding. OROPHARYNX: Mouth normal, teeth no caries, tongue pink. Pharynx clear, no erythema. Tonsils no exudates, no abscesses noted. Mucous membrane moist. NECK: Supple, non-tender, no thyromegaly, no masses, no JVD, no bruits. BREAST: Deferred. CHEST: No tenderness, no crepitus, no paradoxical movement, no retractions. LUNGS: Clear, well-ventilated, symmetric, no rales, no wheezing, no rhonchi, no stridor, good breath sounds bilaterally. HEART: Regular rate, regular rhythm, no murmur, no gallops. VASCULAR: No peripheral edema. ABDOMEN: Soft, positive bowel sounds, nondistended, no guarding, nontender, no rebound, no masses no hepatomegaly, no splenomegaly, no Serrato's sign, no hernias. RECTAL: Deferred. GENITAL: Deferred. NEUROLOGICAL: Normal speech, gross motor function intact, gross sensory function intact. MUSCULOSKELETAL: Neck nontender, full range of motion, back nontender, full range of motion. EXTREMITIES: Nontender, full range of motion. SKIN: Color pink, dry, no turgor, no rash, no lacerations, no abrasions, no contusions. LYMPHATICS: Deferred. Results Laboratory and Microbiology Lab and Micro Result Laboratory Tests Test 01/19/25 10:07 01/19/25 10:19 White Blood Count 7.5 K/uL (4.8-10.8) Red Blood Count 4.58 MIL/uL (4.50-6.20) Hemoglobin 14.8 g/dL (14.0-18.0) Hematocrit 42.2 % (42-54) Mean Corpuscular Volume 92.1 fL (79-99) Mean Corpuscular Hemoglobin 32.3 pg (27.0-33.0) Mean Corpuscular Hemoglobin Concent 35.1 g/dL (32.0-36.0) Red Cell Distribution Width 13.0 % (11.0-15.5) Platelet Count 181 K/uL (130-400) Mean Platelet Volume 10.0 fL (7.5-10.5) Immature Granulocyte % (Auto) 0.4 % (0-1) Neutrophils (%) (Auto) 64.2 % (40.0-77.0) Lymphocytes (%) (Auto) 25.6 % (21.0-51.0) Monocytes (%) (Auto) 7.7 % (3.0-13.0) Eosinophils (%) (Auto) 1.7 % (0.0-8.0) Basophils (%) (Auto) 0.4 % (0.0-5.0) Neutrophils # (Auto) 4.8 K/uL (1.8-7.7) Lymphocytes # (Auto) 1.9 K/uL (1.0-4.8) Monocytes # (Auto) 0.6 K/uL (0.1-1.0) Eosinophils # (Auto) 0.13 K/uL (0.00-0.70) Basophils # (Auto) 0.03 K/uL (0.00-0.20) Absolute Immature Granulocyte (auto 0.03 K/uL (0-1) Nucleated Red Blood Cells 0.0 % (0.0-0.19) Sodium Level 139 mmol/L (136-145) Potassium Level 3.9 mmol/L (3.5-5.1) Chloride Level 104 mmol/L (101-111) Carbon Dioxide Level 27 mmol/L (21-32) Blood Urea Nitrogen 22 mg/dL (7-18) H Creatinine 0.8 mg/dL (0.5-1.3) Glomerular Filtration Rate Calc 104 mL/min (>90) Random Glucose 106 mg/dL (70-105) H Total Calcium 9.0 mg/dL (8.5-10.1) Magnesium Level 1.90 mg/dL (1.80-2.40) Troponin I High Sensitivity 4 ng/L (4-75) B-Type Natriuretic Peptide 97 pg/mL (0-100) Urine Color LIGHT-YELLOW (YELLOW) Urine Appearance CLEAR (CLEAR) Urine pH 6.0 (5.0-8.0) Urine Specific [place] 1.020 (1.001-1.031) Urine Protein NEGATIVE mg/dL (NEGATIVE) Urine Glucose (UA) >=1000 mg/dL (NEGATIVE) H Urine Ketones NEGATIVE mg/dL (NEGATIVE) Urine Occult Blood NEGATIVE (NEGATIVE) Urine Nitrate NEGATIVE (NEGATIVE) Urine Bilirubin NEGATIVE mg/dL (NEGATIVE) Urine Urobilinogen 0.2 mg/dL (0.2-1.0) Urine Leukocyte Esterase NEGATIVE Marilyn/uL Urine RBC 0-1 /HPF (0-1) Urine WBC 2-5 /HPF (0-1) H Urine Squamous Epithelial Cells RARE /HPF (0-2) Urine Bacteria None /HPF (None Seen) Labs Reviewed?: Yes EKG/XRAY/US/CT/MRI EKG Comment 01/19/2025 time 11:18 a.m. Ventricular rate 66 Sinus rhythm DC [address] wave elevation or depression X-RAY Comment [place] [address] [place] [id number] IMAGING REPORT Signed PATIENT: SHANE YANEZ MR#: [id number] : 1970 SEX: M AGE: 54 LOCATION: [facility] ORDER 8 STATUS: REG ER REPORT#: [id number] SERVICE 7 REASON: sob ORDERING PHYSICIAN: SHARON PAUL MD PROCEDURE: CXR1VW - CHEST 1VW EXAM: CR Chest, 1 View. CLINICAL HISTORY: sob COMPARISON: Radiograph from March 24, 2023 Findings: AICD lead overlies the right ventricle. Heart size is stable. Pulmonary vessels are within normal limits. There is mild bibasilar airspace disease that may reflect atelectasis. There is no pleural effusion or pneumothorax. IMPRESSION: 1. No acute cardiopulmonary findings. /[place] DICTATED BY: GERARD DODSON Jr., MD DATE: 01/19/251321 ELECTRONICALLY SIGNED BY: GERARD DODSON Jr., MD DATE: 01/19/251321 [facility] MDM: Differential diagnosis: URI, history of CHF, Rationale: Tests considered and ordered secondary to shared decision making include: Previous outside records reviewed: Old ER visits. Risk of complication and/or morbidity or mortality of patient management: None Medications-Per medication reconciliation Need for hospitalization: Patient does not meet criteria for hospitalization. Patient is a 54-year-old gentleman coming in complaining of shortness of breath. He was also concerned because lower extremities were swollen. He states he has been gets congestion in his lungs and needs diuretics. Laboratory workup negative for acute findings chest x-ray did not disclose acute findings patient received a breathing treatments states he has been much better I did go over the laboratory findings BNP within normal limits patient will be discharged in stable condition with a diagnosis of URI with a history of CHF. ED Course Orders Procedure Category Date Status Time Cbc With Differential LAB 01/19/25 Complete 09:58 Chest 1vw RAD 01/19/25 Resulted 09:58 12 Lead Ekg Tracing- EKG 01/19/25 Logged Technical 09:58 Magnesium LAB 01/19/25 Complete 09:58 Troponin I High LAB 01/19/25 Complete Sensitivity 09:58 Urinalysis Profile LAB 01/19/25 Complete 09:58 Basic Metabolic Panel LAB 01/19/25 Complete 09:58 B-Type Natriuretic LAB 01/19/25 Complete Peptide 09:58 Ipratropium/Albuterol PHA 01/19/25 Complete Neb (Duoneb) 12:00 Methylprednisolone PHA 01/19/25 Complete Succ 125mg (Solu-Medr 12:00 Current Medications Medications (Trade) Dose Ordered Sig/Nicolle Route PRN Reason Start Time Stop Time Status Last Admin Dose Admin Albuterol (DUOneb) 2 udvial ONCE ONCE IH 01/19/25 12:00 01/19/25 12:01 DC 01/19/25 12:19 Methylprednisolone Sodium Succinate (Solu-medROL 125MG) 125 mg ONCE ONCE IVP 01/19/25 12:00 01/19/25 12:01 DC Vital Signs Date Time Temp Pulse Resp B/P (MAP) Pulse Ox O2 Delivery O2 Flow Rate FiO2 01/19/25 12:22 61 18 01/19/25 12:04 98.1 18 17 135/51 99 Room Air* 0 21 01/19/25 11:00 98.1 18 18 119/57 98 Room Air* 0 21 01/19/25 10:00 98.1 16 18 124/72 98 Room Air* 0 21 01/19/25 09:47 98.1 75 16 124/72 96 Room Air DX & DISP Disposition: Discharge Departure Impression: Primary Impression: Pedal edema Additional Impressions: URI (upper respiratory infection), History of CHF (congestive heart failure) Condition: Stable Additional Instructions: FOLLOW-UP WITH PRIMARY CARE PROVIDER IN 1 TO 2 DAYS. TAKE MEDICATIONS DIRECTED HERE IN THE EMERGENCY ROOM. OKAY TO CONTINUE HOME MEDICATIONS UNLESS OTHERWISE DISCUSSED DURING YOUR VISIT IN THE EMERGENCY ROOM TODAY. RETURN TO YOUR NEAREST EMERGENCY ROOM IF SYMPTOMS WORSEN OR IF THERE IS NO IMPROVEMENT. CALL 911 IF YOU NEED IMMEDIATE ASSISTANCE. TAKE TYLENOL [id number] NEEDED AND IF NO CONTRAINDICATIONS ARE PRESENT. INCREASE ORAL HYDRATION. A WOUND CULTURE OR URINE CULTURE WAS ORDERED HERE IN THE EMERGENCY ROOM DEPARTMENT PLEASE FOLLOW-UP WITH PRIMARY CARE PROVIDER AND ADVISE THEM TO GET REPORTS FROM OUR FACILITY. IF YOU HAD ANY CHARLENE WRAP/SPLINTS THAT WERE APPLIED HERE, PLEASE DO NOT REMOVE THEM UNTIL YOU SEE YOUR PRIMARY CARE OR SPECIALTY. Referrals: Referrals: ORLANDO SAMANO (PCP) Time of Disposition: 13:05 SHARON PAUL MD Jan 19, 2025 10:21
[2025-01-19 10:42] LABS: APPEARANCE,URINE CLEAR (CLEAR); GLUCOSE, URINE (UA) >=1000 mg/dL (NEGATIVE); LEUKOCYTE ESTERASE ,URINE NEGATIVE Leu/uL (NEGATIVE); NITRATE,URINE NEGATIVE (NEGATIVE); OCCULT BLOOD,URINE NEGATIVE (NEGATIVE)
[2025-01-19 10:43] LABS: ADD UA MICROSCOPIC YES
[2025-01-19 11:04] LABS: SQUAMOUS EPITHELIAL CELL,UR RARE /HPF (0-2)
[2025-01-19 12:22] VITALS: PULSE 61; RESP 18
--- NOTE | 2025-01-19 12:23 | HMCIMG ---
EXAM: CR Chest, 1 View. CLINICAL HISTORY: sob COMPARISON: Radiograph from March 24, 2023 Findings: AICD lead overlies the right ventricle. Heart size is stable. Pulmonary vessels are within normal limits. There is mild bibasilar airspace disease that may reflect atelectasis. There is no pleural effusion or pneumothorax. IMPRESSION: 1. No acute cardiopulmonary findings. /[place]
[2025-01-19 13:20] VITALS: BP 138/55; PULSE 17; RESP 17; TEMP 98; O2SAT 98
--- NOTE | 2025-01-19 15:04 | EKG ---
[facility] Test Date: 2025-01-19 Test Time: 11:18:22 Pat Name: SHANE YANEZ Department: ED Room: Gender: M Ms [employer] Developer: [id number] : 1970 Requested By: SHARON PAUL Order Number: [id number] Reading MD: Westley Ro Measurements Intervals [place] Rate: 66 P: 6 WA: 182 QRS: 77 QRSD: 88 T: 92 QT: 401 QTc: 422 Interpretive Statements Sinus rhythm Anterior infarct, old Compared to ECG 05/07/2024 07:32:09 No significant changes Electronically Signed On 01-19-2025 23:44:27 CDT by Westley Ro Please click the below link to view image of tracing.
== END 2025-01-19 13:30 | disposition home or self-care (01) ==
LOC: EDH 09:45
DX: J06.9 Acute upper respiratory infection, unspecified (principal); R60.9 Edema, unspecified; E11.9 Type 2 diabetes mellitus without complications; E78.00 Pure hypercholesterolemia, unspecified; I11.0 Hypertensive heart disease with heart failure; I25.10 Atherosclerotic heart disease of native coronary artery without angina pectoris; I50.9 Heart failure, unspecified; Z79.01 Long term (current) use of anticoagulants; Z79.899 Other long term (current) drug therapy; Z85.528 Personal history of other malignant neoplasm of kidney; Z95.810 Presence of automatic (implantable) cardiac defibrillator; Z98.890 Other specified postprocedural states
CPT/HCPCS: 99285; 96374; 71045; 83735; 84484; 80048; 83880; 85025; 81001; 36415; 93005; 94640; J2919